=== PATIENT | male | born 1965 | race Caucasian/White ===

== ENCOUNTER 2016-12-01 21:58 | Inpatient (IN) | payer OTHER, MEDICAID ==
[~2016-12-01] VITALS: Ht 172.7 cm; Wt 80.9 kg
[2016-12-01] MEDS ORDERED: AMBI10TA PO (22:15)
[2016-12-01] MEDS ORDERED: EFFE150C PO (22:15)
[2016-12-01] MEDS ORDERED: ADDE30CA3 PO (22:15)
[2016-12-01] MEDS ORDERED: PREV15CA18 PO (22:15)
[2016-12-01] MEDS ORDERED: LIPI20TA PO (22:15)
[2016-12-01] MEDS ORDERED: KLON2TAB PO (22:15)
[2016-12-01 23:09] LABS: VENOUS BASE EXCESS -3.2 (-2.0-2.0); VENOUS O2 SATURATION 61.6 % (60.0-80.0); VENOUS PARTIAL PRESSURE CO2 49.7 mmHg (38.0-50.0); VENOUS PARTIAL PRESSURE O2 34.2 mmHg (30.0-50.0); VENOUS STANDARD HCO3 20.9 MEQ/L; VENOUS TOTAL CO2 25.3 MEQ/L (24.0-28.0)
[2016-12-01 23:22] LABS: BASO % 0.3 % (0.0-1.0); EOS # 0.2 K/mm3 (0.0-0.50); EOS % 2.3 % (0.0-3.0); LARGE UNSTAINED CELL # 0.2 K/mm3 (0.0-0.4); LYMPH # 3.2 K/mm3 (1.5-4.5); MEAN CORPUSCULAR HEMOGLOBIN 30.3 pg (27.0-33.0); MEAN CORPUSCULAR HGB CONC 34.7 g/dl (32.0-36.5); MEAN CORPUSCULAR VOLUME 87.3 fl (80.0-96.0); MONO # 0.4 K/mm3 (0.0-0.8); MONO % 4.7 % (0.0-5.0); NEUTROPHILS # 3.9 K/mm3 (1.8-7.7); NEUTROPHILS % 49.7 % (36.0-66.0); PLATELET COUNT, AUTOMATED 168 k/mm3 (150-450); RED CELL DISTRIBUTION WIDTH 12.2 % (11.5-14.5); WHITE BLOOD COUNT 7.9 K/mm3 (4.0-10.0)
[2016-12-01] MEDS ORDERED: DEXTROSE 50% 50 ML SYRINGE IV STA (23:48)
[2016-12-02] MEDS ORDERED: LR 1,000 ML IV ONE
[2016-12-02 00:14] LABS: METHADONE URINE NEGATIVE (NEGATIVE)
[2016-12-02 00:23] LABS: ALBUMIN 3.9 GM/DL (3.2-5.2); ALBUMIN/GLOBULIN RATIO 1.18 (1.00-1.93); ALKALINE PHOSPHATASE 101 U/L (45-117); ALT/SGPT 42 U/L (12-78); ANION GAP 11 MEQ/L (8-16); AST/SGOT 21 U/L (15-37); BILIRUBIN,DIRECT 0.1 MG/DL (0.0-0.2); BILIRUBIN,TOTAL 0.3 MG/DL (0.2-1.0); BLOOD UREA NITROGEN 8 MG/DL (7-18); CALCIUM LEVEL 8.8 MG/DL (8.5-10.1); CARBON DIOXIDE LEVEL 25 MEQ/L (21-32); CHLORIDE LEVEL 102 MEQ/L (98-107); CREATININE FOR GFR 1.05 MG/DL (0.70-1.30); GLOMERULAR FILTRATION RATE > 60.0 (>56); GLUCOSE, FASTING 65 MG/DL (70-105); SODIUM LEVEL 138 MEQ/L (136-145); TOTAL PROTEIN 7.2 GM/DL (6.4-8.2)
[2016-12-02] MEDS ORDERED: D5W/0.45% SODIUM CHLORIDE 1,000 ML IV SCH (03:30)
[2016-12-02] MEDS ORDERED: MOM 30ML SUSPENSION UDC PO PRN (05:30)
[2016-12-02] MEDS ORDERED: ACETAMINOPHEN TAB 650MG DOSE (2X325MG) PO PRN (05:30)
[2016-12-02] MEDS ORDERED: MAALOX 30 ML SUSP *UDC PO PRN (05:30)
[2016-12-02] MEDS ORDERED: traZODone 50 MG TAB PO PRN (05:30)
[2016-12-02] MEDS ORDERED: EFFE75CA75 PO (05:58)
[2016-12-02] MEDS ORDERED: ATOR40TA75 PO (05:58)
[2016-12-02] MEDS ORDERED: ABIL1TAB11 PO (05:58)
[2016-12-02] MEDS ORDERED: VENL75CA2 PO (05:58)
[2016-12-02] MEDS ORDERED: LANS30CA PO (05:58)
--- NOTE | 2016-12-02 05:58 | ECGEPIP ---
Stationary ECG Study [facility] - ED Test Date: 2016-12-01 Pat Name: ZULY RUBY Department: Room: - Gender: M [employer] Consultant: byron : 1965 Requested By: SUNDEEP ESQUIVEL Order Number: [id number] Reading MD: Duaen Thompson Measurements Intervals [place] Rate: 72 P: -9 MN: 158 QRS: 39 QRSD: 87 T: 47 QT: 376 QTc: 413 Interpretive Statements SINUS RHYTHM POSSIBLE PRIOR INFERIOR INFARCT NO PRIORS Electronically Signed On 12-02-2016 5:58:41 EDT by Duane Thompson
[2016-12-02 08:20] VITALS: BP 119/75
[2016-12-02] MEDS ORDERED: ATORVASTATIN 20 MG TAB PO SCH (09:00)
[2016-12-02] MEDS ORDERED: ADDERALL 5 MG TAB PO SCH (09:00)
[2016-12-02] MEDS ORDERED: VENLAFAXINE **XR** 75MG CAPSULE PO SCH (09:00)
[2016-12-02] MEDS ORDERED: LANSOPRAZOLE SUSPENSION 30 MG/10 ML ORAL SYRINGE (FIRST-LANSOPRAZOLE) PO SCH (09:00)
--- NOTE | 2016-12-02 10:08 | HPEPDOC ---
Medical History and Physical Date of Admission Dec 02, 2016 at 05:28 History and Physical PCP: Dr Layton ATTENDING: Dr. Jonathan Chester HPI: 51yoM admitted to [facility] for depressive disorder, being medically examined today. No acute medical complaints today. Denies any fevers, chills, weakness, fatigue, CORTEZ, CP, SOB, cough, palpitations, abdominal pain, N/V/D or changes in bowel or bladder habits. PMHx: ADHD Anxiety Depression History of SI Self-mutilation Hyperlipidemia GERD Insomnia BPH H/O pos PPD, Pt states Quantferon gold neg. Pt states screened for HIV/Hepatitis 12/11 neg. 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 ROS: As noted in HPI, otherwise 11pt ROS of systems reviewed and unremarkable. PE: GEN: 51yoM, appears stated age. Well-nourished, well developed. No acute distress. Alert and oriented x 3. Pleasant, interactive. HEENT: Normocephalic, atraumatic. Pupils are equal, round, and reactive to light. Extraocular movements are intact. No nystagmus appreciated. Sclera are nonicteric. Conjunctiva without injection. Nose midline. Nasal turbinates without bogginess. EACs both patent BL. TMs both visualized and perez with good cone of light, no bulging or erythema. No facial asymmetry. Moist mucous membranes. Dentition fair. Pharynx pink and moist, no cobblestoning. Neck supple , trachea midline. No lymphadenopathy or thyromegaly appreciated. CHEST: Regular rate and rhythm, +S1, +S2 LUNGS: Clear to auscultation bilaterally. No wheezes, rales, or rhonchi. Breathing appears symmetric and easy. Patient is speaking in full sentences. No accessory muscle use. ABD: Round, soft, non-tender, non-distended. +Bowel sounds throughout. No rebound or guarding. No costovertebral angle tenderness. EXT: Pulses 2+ bilaterally dorsalis pedis and radial. No lower extremity edema appreciated. SKIN: [place], dry, warm. Capillary refill <2sec. No rashes. NEURO: Alert and oriented x 3. Cranial nerves III-XII are intact. No focal deficits appreciated. EK12/01/16 SINUS RHYTHM POSSIBLE PRIOR INFERIOR INFARCT NO PRIORS A&P: 51yoM admitted to [facility] for depressive disorder, 1. Psych. Plan per Psychiatry. EKG on file. 2. Borderline EKG. No cardiac signs or symptoms appreciated on exam, follow with PCP. 3. Follow up with PCP on discharge. 4. GERD. Continue Protonix 40 mg daily. 5. Hyperlipidemia. Continue atorvastatin 40 mg daily. 6. Staff member Raquel GARZA present throughout exam. Vital Signs Vital Signs Date Time Temp Pulse Resp B/P (MAP) Pulse Ox O2 Delivery O2 Flow Rate FiO2 12/02/16 08:20 97.5 77 16 119/75 (90) 98 Room Air Laboratory Data Labs 24H Laboratory Tests 2 12/01/16 22:56: White Blood Count 7.9, Red Blood Count 4.92, Hemoglobin 14.9, Hematocrit 42.9, Mean Corpuscular Volume 87.3, Mean Corpuscular Hemoglobin 30.3, Mean Corpuscular Hemoglobin Concent 34.7, Red Cell Distribution Width 12.2, Platelet Count 168, Neutrophils (%) (Auto) 49.7, Lymphocytes (%) (Auto) 40.0, Monocytes ( %) (Auto) 4.7, Eosinophils (%) (Auto) 2.3, Basophils (%) (Auto) 0.3, Neutrophils # (Auto) 3.9, Lymphocytes # (Auto) 3.2, Monocytes # (Auto) 0.4, Eosinophils # (Auto) 0.2, Basophils # (Auto) 0.0, Large Unclassified Cells % 3.0 , Large Unclassified Cells # 0.2, Blood Gas Bicarbonate Standard 20.9, Venous Blood pH 7.297L, Venous Blood Partial Pressure CO2 49.7, Venous Blood Partial Pressure O2 34.2, Venous Blood Total Carbon Dioxide 25.3, Venous Blood HCO3 23.7 , Venous Blood Oxygen Saturation 61.6, Venous Blood Base Excess -3.2L, Anion Gap 11, Glomerular Filtration Rate > 60.0, Calcium Level 8.8, Aspartate Amino Transf (AST/SGOT) 21, Alanine Aminotransferase (ALT/SGPT) 42, Alkaline Phosphatase 101, Total Bilirubin 0.3, Direct Bilirubin 0.1, Total Creatine Kinase 126, Total Protein 7.2, Albumin 3.9, Albumin/Globulin Ratio 1.18, Thyroid Stimulating Hormone (TSH) 1.470, Salicylates Level < 1.7L, Urine Amphetamines Screen POSITIVEH, Urine Benzodiazepines Screen NEGATIVE, Urine Opiates Screen NEGATIVE, Urine Methadone Screen NEGATIVE, Acetaminophen Level < 2.0L, Urine Barbiturates Screen NEGATIVE, Urine Phencyclidine Screen NEGATIVE, Urine Cocaine Metabolite Screen NEGATIVE, Urine Cannabinoids Screen NEGATIVE, Ethyl Alcohol Level 0.050H 12/01/16 23:11: Bedside Glucose (Misc Panel) 68L 12/02/16 02:47: Bedside Glucose (Misc Panel) 73 12/02/16 04:21: Bedside Glucose (Misc Panel) 97 CBC/BMP Laboratory Tests 12/01/16 22:56 Red Blood Count 4.92, Mean Corpuscular Volume 87.3, Mean Corpuscular Hemoglobin 30.3, Mean Corpuscular Hemoglobin Concent 34.7, Red Cell Distribution Width 12.2 , Neutrophils (%) (Auto) 49.7, Lymphocytes (%) (Auto) 40.0, Monocytes (%) (Auto ) 4.7, Eosinophils (%) (Auto) 2.3, Basophils (%) (Auto) 0.3, Neutrophils # (Auto ) 3.9, Lymphocytes # (Auto) 3.2, Monocytes # (Auto) 0.4, Eosinophils # (Auto) 0.2, Basophils # (Auto) 0.0 Home Medications Scheduled Amphetamine/Dextroamphetamine (Adderall Xr 30 mg) 1 Cap Cap, 1 CAP PO DAILY Aripiprazole (Abilify) 5 Mg Tab, 5 MG PO QHS Atorvastatin Calcium (Atorvastatin Calcium) 40 Mg Tab, 40 MG PO DAILY Lansoprazole (Lansoprazole) 30 Mg Cap, 30 MG PO DAILY Venlafaxine HCl (Venlafaxine HCl ER) 75 Mg Cap, 75 MG PO QHS Venlafaxine Hydrochloride (Effexor Xr) 75 Mg Cap, 225 MG PO DAILY Scheduled PRN Clonazepam (Klonopin) 2 Mg Tab, 2 MG PO BID PRN for ANXIETY Zolpidem Tartrate (Ambien) 10 Mg Tab, 10 MG PO QHS PRN for SLEEP Allergies Coded Allergies: No Known Allergies (Unverified , 12/01/16) Sirena Villa Dec 02, 2016 10:08
[2016-12-02] MEDS: clonazePAM 1 MG TAB PO SCH ×2 (10:15→21:36)
[2016-12-02] MEDS: ATORVASTATIN 20 MG TAB PO SCH (10:56)
[2016-12-02] MEDS: VENLAFAXINE **XR** 75MG CAPSULE PO SCH ×2 (10:56→21:36)
[2016-12-02] MEDS: ADDERALL 5 MG TAB PO SCH (10:57)
[2016-12-02] MEDS: PANTOPRAZOLE 40MG TAB (PROTONIX) PO SCH (13:22)
[2016-12-02 18:00] VITALS: BP 104/69
--- NOTE | 2016-12-02 18:03 | MHHPEPDOC ---
[facility] History & Physical History and Physical DATE OF ADMISSION: Dec 02, 2016 at 05:28 LEGAL STATUS AT ADMISSION: 9.39 CHIEF COMPLAINT: "I was angry at my , I wanted him to feel hurt and scared like I did, do I took a bunch of medicine, but it wasn't to kill myself. " HISTORY OF THE PRESENT ILLNESS: Patient is a 51-year-old male, who has past diagnosis of depression and anxiety who presented for evaluation after reportedly ingesting 20 2mg Klonopin and drinking 50oz of beer. Patient states that approximately 1 week ago he discovered that his was HIV-positive, which he was not when the two were . The patient took this to mean that his had cheated on him. Previously the patient had been to a woman who had also cheated on him, this resulted in the triggering of painful memories from his past. The patient reports having struggled with these memories all week and last night was "exhausted" so he went home and took an Ambien and a Klonopin to sleep, when he was unable to fall asleep he took another of each. 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 Patient informed his of this who had the patient brought to the ED for evaluation. Patient states he has had a difficult time trusting anyone since his cheated on him. This betrayal compounded the fact that he had been trying to hide his homosexuality for years, finally outing himself at age 47. He met his current online while his was in the [facility], they eventually met and were engaged, then the moved with him to [place] after they . The patient reports that he had been in treatment for depression ever since finding out that his cheated on him. He had previously been on venlafaxine and aripiprazole, but on admission was only on venlafaxine. He did not explain why he had stopped taking the aripiprazole. At the beginning of the interview when the interviewer introduced the medical team the patient acknowledged the team by stating, "I'm Dr. Hay as well, PhD , but still a doctor." He described a history of having distractible thoughts while in school for his PhD when he was in his 30s, and stated that he had discussed this with an MD who prescribed him Ritalin, which the patient stated was very effective for him and he had been using for years. 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 PSYCHIATRIC REVIEW OF SYSTEMS: Affective: denies depressed mood, reports anger related to betrayal by his ; denies lack of sleep, decreased energy, change in appetite, decreased concentration, or suicidal ideation; does report some feeling of worthlessness due to his 's infidelity Anxiety: denied feeling anxious or having racing thoughts Trauma: denied past history of abuse, denied nightmares/flashbacks related to prior experiences with infidelity Psychosis: denied AVH, denied paranoia, denied delusional or grandiose thoughts Personally: reported he had cut himself during his first bout of depression with his ; felt some shame related to his sexuality which was lingering from having hid it for years; reported detachment from his emotions during periods of stress, denied derealization or micropsychotic features PAST PSYCHIATRIC HISTORY: Prior Psychiatric Disorder: anxiety/depression, no inpatient stays Outpatient Treatment: yes, medications only Suicidal/Self injurious: self-injurious in past; "I could never commit suicide, I don't have it in me" Psychotropic Medication History: venlafaxine, Abilify ALLERGIES: Please see below. FAMILY PSYCHIATRIC HISTORY: believes both of his brothers take antidepressants SOCIAL HISTORY: Early Relations/development: had a good childhood, [place], no complaints about life Sibling order: middle Paternal relationships: good relationships with his parents; denied any conflicts Education: PhD Occupational: works at [employer]: denies Martial: second marriage, first to woman and had 2 children, second to man after coming out as perla Economic: no concerns Supports: Abuse/trauma: denies SUBSTANCE ABUSE HISTORY: "rarely drinks", less than once a month; does not smoke ; denies use of illicit drugs but does report abusing his Klonopin prior to admission by taking 20 2mg tabs; UTox was negative for benzodiazepines which patient states "must be an error in testing, I definitely took them" PAST MEDICAL/SURGICAL HISTORY: none Vital Sign - Last 24 Hours 12/01/16 12/01/16 12/01/16 12/01/16 22:20 22:28 22:30 22:43 Temp 96.8 Pulse 73 73 89 Resp 16 B/P (MAP) 97/65 (76) 99/56 (70) Pulse Ox 98 98 O2 Delivery Room Air 12/01/16 12/01/16 12/01/16 12/01/16 22:45 22:58 23:10 23:13 Pulse 73 72 B/P (MAP) 101/66 (78) 115/76 (89) Pulse Ox 98 98 12/01/16 12/01/16 12/01/16 12/01/16 23:15 23:28 23:30 23:43 Pulse 69 71 B/P (MAP) 109/77 (88) 112/78 (89) Pulse Ox 98 98 12/01/16 12/01/16 12/02/16 12/02/16 23:45 23:58 00:00 00:15 Pulse 74 66 B/P (MAP) 112/82 (92) 114/84 (94) 116/79 (91) 12/02/16 12/02/16 12/02/16 12/02/16 00:30 00:45 01:00 01:30 Pulse 65 67 68 67 B/P (MAP) 108/68 (81) 123/77 (92) 115/77 (90) Pulse Ox 97 98 12/02/16 12/02/16 12/02/16 12/02/16 01:48 02:03 02:18 02:33 Pulse 61 59 60 B/P (MAP) 107/72 (84) Pulse Ox 96 98 98 12/02/16 12/02/16 12/02/16 12/02/16 02:48 03:03 03:18 03:33 Pulse 68 69 65 67 Pulse Ox 96 99 96 12/02/16 12/02/16 12/02/16 12/02/16 04:26 07:29 07:29 08:20 Temp 98.0 97.9 97.5 Pulse 78 77 77 Resp 16 18 16 B/P (MAP) 103/64 (77) 105/73 (84) 119/75 (90) Pulse Ox 96 98 O2 Delivery Room Air Room Air MENTAL STATUS EXAMINATION: General appearance: Patient is a 51-year old male, who is appears younger than stated age, dressed in hospital gown with fair-good hygiene/grooming; calm and cooperative with interview; intense, intermittent eye contact Speech: fluent; normal rate; flat tone, soft volume Thought processes: logical, linear, coherent Thought content: denies SI/HI; reports that he wanted his to hurt the way he did Abstract reasoning and computation: not tested Description of associations: intact Description of abnormal or psychotic thoughts: denied AVH, appears internally preoccupied before each response; no evidence of paranoid thoughts; persistent delusions that he took a very large quantity of benzodiazepines despite lack of any medical evidence Judgment: poor Insight: poor Orientation: x3 Recent and remote memory: intact Attention span and concentration: intact Mood: "angry" Affect: flat; incongruent with stated mood or thought content DIAGNOSES: 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 The patient denies that his reported ingestion of 40mg of Klonopin was a suicide attempt, but does admit that it was meant to scare his spouse. He remains firmly convinced that he took this medication despite lack of any medical evidence to corroborate the ingestion. Patient denies any psychotic features except for some depersonalization of his emotions; however, his stare is very intense and appears to have a level of preoccupation as though the patient is carefully considering all possible responses prior to speaking. Patient is also noted to be completely expressionless when discussing very emotional events in his recent life, including the of his mother one month ago. Patient's timeline of events do not match up to the evidence presented, it is unclear if the patient is lying or delusional at this time. He likely would not be safe as his risk of suicide is quite high considering his recent traumatic events, depersonalization, and reported past history of self-harm. Patient does express interest in outpatient therapy, primarily focused on couples counseling at this time. At this point he would benefit from an inpatient stay for stabilization, medication management, and skill-building. PROBLEM LIST: 1. ineffective coping 2. risk for suicide 3. depression INITIAL TREATMENT PLAN: 1. Patient was admitted on a 9 2. Complete history was obtained. 3. With patients permission, family will be contacted and database will be expanded. 4. Patients medication regimen will be reviewed and changed accordingly. 5. Patient will be provided with protected environment. 6. Patient will be treated with individual, group, and milieu therapies. 7. Patient will receive supportive psych-education. 8. Discharge planning will commence immediately. 9. Outpatient follow-up treatment will be strongly recommended. 10. The initial treatment plan will focus initially on: * Depression. * Risk for suicide. * Substance abuse. ESTIMATED LENGTH OF STAY: 7-10 DAYS. TIME SPENT COUNSELING AND COORDINATING INITIAL CARE: 60 minutes. Laboratory Data 24H Labs Laboratory Tests 2 12/01/16 22:56: White Blood Count 7.9, Red Blood Count 4.92, Hemoglobin 14.9, Hematocrit 42.9, Mean Corpuscular Volume 87.3, Mean Corpuscular Hemoglobin 30.3, Mean Corpuscular Hemoglobin Concent 34.7, Red Cell Distribution Width 12.2, Platelet Count 168, Neutrophils (%) (Auto) 49.7, Lymphocytes (%) (Auto) 40.0, Monocytes ( %) (Auto) 4.7, Eosinophils (%) (Auto) 2.3, Basophils (%) (Auto) 0.3, Neutrophils # (Auto) 3.9, Lymphocytes # (Auto) 3.2, Monocytes # (Auto) 0.4, Eosinophils # (Auto) 0.2, Basophils # (Auto) 0.0, Large Unclassified Cells % 3.0 , Large Unclassified Cells # 0.2, Blood Gas Bicarbonate Standard 20.9, Venous Blood pH 7.297L, Venous Blood Partial Pressure CO2 49.7, Venous Blood Partial Pressure O2 34.2, Venous Blood Total Carbon Dioxide 25.3, Venous Blood HCO3 23.7 , Venous Blood Oxygen Saturation 61.6, Venous Blood Base Excess -3.2L, Anion Gap 11, Glomerular Filtration Rate > 60.0, Calcium Level 8.8, Aspartate Amino Transf (AST/SGOT) 21, Alanine Aminotransferase (ALT/SGPT) 42, Alkaline Phosphatase 101, Total Bilirubin 0.3, Direct Bilirubin 0.1, Total Creatine Kinase 126, Total Protein 7.2, Albumin 3.9, Albumin/Globulin Ratio 1.18, Thyroid Stimulating Hormone (TSH) 1.470, Salicylates Level < 1.7L, Urine Amphetamines Screen POSITIVEH, Urine Benzodiazepines Screen NEGATIVE, Urine Opiates Screen NEGATIVE, Urine Methadone Screen NEGATIVE, Acetaminophen Level < 2.0L, Urine Barbiturates Screen NEGATIVE, Urine Phencyclidine Screen NEGATIVE, Urine Cocaine Metabolite Screen NEGATIVE, Urine Cannabinoids Screen NEGATIVE, Ethyl Alcohol Level 0.050H 12/01/16 23:11: Bedside Glucose (Misc Panel) 68L 12/02/16 02:47: Bedside Glucose (Misc Panel) 73 12/02/16 04:21: Bedside Glucose (Misc Panel) 97 CBC/BMP Laboratory Tests 12/01/16 22:56 Red Blood Count 4.92, Mean Corpuscular Volume 87.3, Mean Corpuscular Hemoglobin 30.3, Mean Corpuscular Hemoglobin Concent 34.7, Red Cell Distribution Width 12.2 , Neutrophils (%) (Auto) 49.7, Lymphocytes (%) (Auto) 40.0, Monocytes (%) (Auto ) 4.7, Eosinophils (%) (Auto) 2.3, Basophils (%) (Auto) 0.3, Neutrophils # (Auto ) 3.9, Lymphocytes # (Auto) 3.2, Monocytes # (Auto) 0.4, Eosinophils # (Auto) 0.2, Basophils # (Auto) 0.0 FSBS Laboratory Tests Test 12/01/16 23:11 12/02/16 02:47 12/02/16 04:21 Range/Units Bedside Glucose (Misc Panel) 68 73 97 70-105 MG/DL Medications Scheduled Amphetamine/Dextroamphetamine (Adderall Xr 30 mg) 1 Cap Cap, 1 CAP PO DAILY, ( Reported) Aripiprazole (Abilify) 5 Mg Tab, 5 MG PO QHS, (Reported) Atorvastatin Calcium (Atorvastatin Calcium) 40 Mg Tab, 40 MG PO DAILY, (Reported ) Lansoprazole (Lansoprazole) 30 Mg Cap, 30 MG PO DAILY, (Reported) Venlafaxine HCl (Venlafaxine HCl ER) 75 Mg Cap, 75 MG PO QHS, (Reported) Venlafaxine Hydrochloride (Effexor Xr) 75 Mg Cap, 225 MG PO DAILY, (Reported) Scheduled PRN Clonazepam (Klonopin) 2 Mg Tab, 2 MG PO BID PRN for ANXIETY, (Reported) Zolpidem Tartrate (Ambien) 10 Mg Tab, 10 MG PO QHS PRN for SLEEP, (Reported) Allergies Coded Allergies: No Known Allergies (Unverified , 12/01/16) YASMANI GARCIA MD Dec 02, 2016 18:03
[2016-12-03 06:45] VITALS: BP 90/59
[2016-12-03] MEDS: clonazePAM 1 MG TAB PO SCH ×2 (08:35→20:46)
[2016-12-03] MEDS: PANTOPRAZOLE 40MG TAB (PROTONIX) PO SCH (08:35)
[2016-12-03] MEDS: ATORVASTATIN 20 MG TAB PO SCH (08:35)
[2016-12-03] MEDS: VENLAFAXINE **XR** 75MG CAPSULE PO SCH ×2 (08:35→20:46)
[2016-12-03] MEDS: ADDERALL 5 MG TAB PO SCH (08:36)
[2016-12-03 18:12] VITALS: BP 106/57
[2016-12-03] MEDS: zolPIDEM TARTRATE 10MG TAB PO PRN (20:46)
--- NOTE | 2016-12-03 22:19 | IPN ---
DATE: 12/03/2016 SUBJECTIVE: The patient today states, "I'm doing all right." says his mood is about 3 to 4, with the closer to 10 as the most depressed. He says he slept well and has no complaints. MENTAL STATUS EXAMINATION: This patient is alert and oriented times three. Concentration is fair. He is verbally spontaneous. There is no formal thought disorder noted. He says his mood is "all right." affect constricted but appropriate to his mood. Not psychotic, suicidal, or homicidal. Concentration is fair. Memory intact. Insight and judgment fair. DIAGNOSES: 1. Unspecified depressive disorder. 2. Unspecified psychotic disorder. 3. Unspecified personality disorder with cluster B and C traits. TREATMENT PLAN: At this point, we will continue to further monitor and evaluate this patient for continued elevation and stabilization of his mood, and continued resolution of any suicidal or homicidal ideations.
[2016-12-04 06:44] VITALS: BP 111/70
[2016-12-04] MEDS: clonazePAM 1 MG TAB PO SCH ×2 (08:07→20:02)
[2016-12-04] MEDS: VENLAFAXINE **XR** 75MG CAPSULE PO SCH ×2 (08:07→20:02)
[2016-12-04] MEDS: PANTOPRAZOLE 40MG TAB (PROTONIX) PO SCH (08:07)
[2016-12-04] MEDS: ADDERALL 5 MG TAB PO SCH (08:07)
[2016-12-04] MEDS: ATORVASTATIN 20 MG TAB PO SCH (08:07)
[2016-12-04 18:12] VITALS: BP 113/75
--- NOTE | 2016-12-04 19:08 | IPN ---
DATE: 12/04/2016 SUBJECTIVE: The patient today states, "I'm doing better." He says he is not suicidal or homicidal. He says he slept well, has no complaints. MENTAL STATUS EXAMINATION: He is alert and oriented times three. Eye contact is fair. Psychomotor activity is normal. No formal thought disorder. He says his mood is better. Affect full range and appropriate. He is not psychotic, suicidal, or homicidal. Concentration fair. Memory intact. Insight and judgment are fair. DIAGNOSES: 1. Unspecified depressive disorder. 2. Unspecified psychotic disorder. 3. Unspecified personality disorder with cluster B and C traits. TREATMENT PLAN: We will continue to monitor the patient for continued stabilization of his mood and continued resolution of any suicidal ideation.
[2016-12-04] MEDS: zolPIDEM TARTRATE 10MG TAB PO PRN (20:03)
[2016-12-05 07:04] VITALS: BP 104/66
[2016-12-05] MEDS: clonazePAM 1 MG TAB PO SCH ×2 (08:42→20:35)
[2016-12-05] MEDS: PANTOPRAZOLE 40MG TAB (PROTONIX) PO SCH (08:42)
[2016-12-05] MEDS: ATORVASTATIN 20 MG TAB PO SCH (08:42)
[2016-12-05] MEDS: VENLAFAXINE **XR** 75MG CAPSULE PO SCH ×2 (08:42→20:35)
[2016-12-05] MEDS: ADDERALL 5 MG TAB PO SCH (08:42)
[2016-12-05] MEDS ORDERED: **PENDING PPD ENTRY XX SCH (09:00)
[2016-12-05] MEDS ORDERED: TUBERCULIN PPD 5 UNITS/0.1 ML ID ONE ×3 (15:30→18:00)
[2016-12-05 18:00] VITALS: BP 90/64
--- NOTE | 2016-12-05 18:31 | MHIPNPDOC ---
[facility] Progress Note Progress Note DATE OF SERVICE: 12/05/16 HISTORY: Patient notes that he is doing well, states he was surprised by how much benefit he found in attending groups over the weekend. He particularly enjoyed the expressive therapy group, relating that someone had reframed a way to view his world which he found very comforting. Patient denied SI/HI and stated that he wanted to go on with his life and work things out with his . Said they had talked extensively over the weekend and he understood better the situation which his had endured. VITAL SIGNS: See below. NEW TEST RESULTS: no new labs; HIV, RPR, and Hepatitis serologies pending CURRENT MEDICATIONS: See below. MENTAL STATUS EXAMINATION: Patient is a 51-year old male, who is dressed in personal clothes appropriate to the season; he is calm and cooperative, has good hygiene, and provides appropriate eye contact Speech: Is fluent; normal rate and volume; flat tone Thought processes including: logical, linear, coherent Thought content: denies SI/HI; focused on future therapy with his Description of associations: intact Description of abnormal or psychotic thoughts: denies AVH, does not appear internally preoccupied; no paranoia or delusions elicited Judgment: fair Insight: fair Orientation: x3 Recent and remote memory: intact Attention span and concentration: intact Mood: "well" Affect: flat; limited range; incongruent to stated mood or thought content DIAGNOSES: Acute Stress Reaction MDD, moderate, without psychotic features Unspecified Personality Disorder ASSESSMENT: Patient is improving and has been engaging in groups. He has been taking all medications as prescribed. Patient appears to still be in somewhat of a state of shock, his emotions still are dissociated from events as he describes them. However, patient appears less hostile than he did during the initial interview. Corroboration of the patient's story has been obtained from his who noted that the patient had swallowed a handful of unknown pills in front of him after having texted him that he was going to kill himself. He notes that the patient has been under a lot of stress both emotionally and financially recently. Patient likely had an acute stress reaction which his previously acquired coping skills were unable to handle. MANAGEMENT PLAN: continue current medication; obtain STD serology; encourage patient to attend groups and continue to focus on coping skills TIME SPENT: 30 minutes. Vital Signs Vital Signs Date Time Temp Pulse Resp B/P (MAP) Pulse Ox O2 Delivery O2 Flow Rate FiO2 12/05/16 18:00 98.0 75 16 90/64 (73) 12/05/16 07:04 Room Air 12/02/16 08:20 98 Laboratory Data 24H Labs Laboratory Tests 2 12/05/16 15:27: Current Medications Current Medications Acetaminophen (Tylenol Tab) 650 mg Q6HP PRN PO HEADACHE or DISCOMFORT; Start at 05:30; Stop 01/01/17 at 05:29 Al Hydrox/Mg Hydrox/Simethicone (Mylanta) 30 ml Q4HP PRN PO HEARTBURN/ INDIGESTION; Start 12/02/16 at 05:30; Stop 01/01/17 at 05:29 Amphetamine/ Dextroamphetamine (Adderall) 15 mg QAM PO Last administered on 08:42; Start 12/02/16 at 09:00; Stop 12/09/16 at 08:59 Amphetamine/ Dextroamphetamine (Adderall) 30 mg QAM PO ; Start 12/02/16 at 09:00 ; Stop 12/02/16 at 10:34; Status DC Aripiprazole (AbiLIFY) 5 mg QHS PO Last administered on 12/04/16 20:03; Start 12/02/16 at 21:00; Stop 01/01/17 at 20:59 Atorvastatin Calcium (Lipitor) 20 mg DAILY PO ; Start 12/02/16 at 09:00; Stop 12/02/16 at 10:10; Status DC Atorvastatin Calcium (Lipitor) 40 mg DAILY PO Last administered on 12/05/16 08 :42; Start 12/02/16 at 09:00; Stop 01/01/17 at 08:59 Clonazepam (KlonoPIN) 2 mg BID PO Last administered on 12/05/16 08:42; Start 12/02/16 at 09:00; Stop 12/09/16 at 08:59 Dextrose (Dextrose 50%) 25 ml STAT STAT IV Last administered on 12/01/16 23:48 ; Start 12/01/16 at 23:48; Stop 12/01/16 at 23:49; Status DC Dextrose/Sodium Chloride 1,000 ml @ 75 mls/hr [id number] IV Last administered on 12/02/16 03:29; Start 12/02/16 at 03:30; Stop 12/02/16 at 08:14; Status DC Home Med (Med Rec Complete!) ASDIRECTED XX ; Start 12/02/16 at 06:00; Stop at 07:08; Status DC Lansoprazole (First-Lansoprazole Oral Suspension) 15 mg DAILY PO ; Start at 09:00; Stop 01/01/17 at 08:59; Status Cancel Magnesium Hydroxide (Milk Of Magnesia) 30 ml DAILYPRN PRN PO CONSTIPATION; Start 12/02/16 at 05:30; Stop 01/01/17 at 05:29 Non-Formulary Medication ( See Comment Field Below ) SEE COMMENTS SECTION 1T @10 XX ; Start 12/07/16 at 10:00; Stop 12/08/16 at 09:59; Status UNV Non-Formulary Medication ( See Comment Field Below ) SEE LABEL COMMENTS DAILY XX ; Start 12/05/16 at 09:00; Stop 12/05/16 at 15:53; Status DC Pantoprazole Sodium (Protonix) 40 mg DAILY PO Last administered on 12/05/16 08 :42; Start 12/02/16 at 09:00; Stop 01/01/17 at 08:59 Trazodone HCl (Desyrel) 50 mg QHSP PRN PO INSOMNIA; Start 12/02/16 at 05:30; Stop 01/01/17 at 05:29; Status Cancel Venlafaxine HCl (Effexor Xr) 75 mg QHS PO Last administered on 12/04/16 20 :02; Start 12/02/16 at 21:00; Stop 01/01/17 at 20:59 Venlafaxine HCl (Effexor Xr) 150 mg DAILY PO ; Start 12/02/16 at 09:00; Stop 01/01/17 at 08:59; Status Cancel Venlafaxine HCl (Effexor Xr) 225 mg QAM PO Last administered on 12/05/16 08:42; Start 12/02/16 at 09:00; Stop 01/01/17 at 08:59 Zolpidem Tartrate (Ambien) 10 mg QHS PRN PO INSOMNIA Last administered on t 20:03; Start 12/02/16 at 10:45; Stop 12/09/16 at 10:44 Allergies Coded Allergies: No Known Allergies (Unverified , 12/01/16) YASAMNI GARCIA MD Dec 05, 2016 18:31
[2016-12-05] MEDS: zolPIDEM TARTRATE 10MG TAB PO PRN (20:35)
[2016-12-06 06:47] VITALS: BP 115/60
[2016-12-06] MEDS: clonazePAM 1 MG TAB PO SCH (08:02)
[2016-12-06] MEDS: ATORVASTATIN 20 MG TAB PO SCH (08:02)
[2016-12-06] MEDS: PANTOPRAZOLE 40MG TAB (PROTONIX) PO SCH (08:02)
[2016-12-06] MEDS: VENLAFAXINE **XR** 75MG CAPSULE PO SCH (08:02)
[2016-12-06] MEDS: ADDERALL 5 MG TAB PO SCH (08:02)
[2016-12-06] MEDS ORDERED: ABIL1TAB11 PO (11:01)
--- NOTE | 2016-12-06 17:35 | MHDSPDOC ---
[facility] Discharge Summary Discharge Summary DATE OF ADMISSION: Dec 02, 2016 at 05:28 DATE OF DISCHARGE: Dec 06, 2016 at 13:30 DISCHARGE DIAGNOSES: Acute Stress Reaction MDD, moderate, without psychotic features Unspecified Personality Disorder REASON FOR ADMISSION: Patient was brought to ED by EMS after his called and stated the patient had taken approximately 20 Klonopin in a presumed suicide attempt. CONSULTANTS INVOLVED: none TREATMENT AND PROGRESS ON THE UNIT : Patient was admitted to the unit and continued on his regular medications with the exception of Klonopin. A discussion was had with the patient about what medications he took as his Utox was negative for benzodiazepines on admission; he remained adamant throughout the admission that he had taken Klonopin and his had agreed that this was the case. Patient was re-started on Abilify which it was unclear if he was taking at home. He was encouraged to participate in groups and he reported much benefit from these. Patient was also provided with information regarding HIV and HIV treatment which helped him to resolve his worries regarding his ' s new diagnosis. Patient reported being interested in outpatient couple's counseling to assist with the marital strife that had occurred. His was involved to assist in protection once the patient returned home and he subsequently removed guns from the house and ensured that the patient's medicine would be kept locked up and given to him as prescribed for the time being. Patient agreed that this would be useful and also agreed to continue with individual therapy. HOSPITAL COURSE: Patient participated in all available groups and attempted to learn as much as he could to process and cope with his stress. Although initially hostile in attitude he quickly became courteous to staff and engaged readily in his treatment. Patient was able to describe detailed methods he had learned for anger/impulse control prior to his discharge and was able to provide a large list of friends who could help support him if he was having further problems. Patient was discharged to home in the care of his . DISCHARGE ASSESSMENT: 51 year old man with MDD who experienced an Acute Stress Reaction secondary to the knowledge that his had cheated on him. This triggered flashbacks to his previous marriage in which his was cheating on him for some time. The patient was able to utilize a logical mindset to cope with the stresses that were presented to him and he was noted to approach all problems in a considerate and rational manner during his stay on the unit. At this time the patient does not appear to be a danger to himself or others and his agrees that the patient is acting as he normally would. MENTAL STATUS EXAMINATION ON DISCHARGE: Patient is a 51-year old male, who is dressed in personal clothes appropriate to the season; he is calm and cooperative with the interview; he has good hyigene/grooming Speech is fluent; normal rate and volume; flat tone Thought processes including: logical, linear, coherent Thought content: denies SI/HI; denies anxiety or depressed mood; expresses determination to resolve his marital issues Abstract reasoning, and computation: intact Description of associations: intact Description of abnormal or psychotic thoughts: denies AVH, does not appear internally preoccupied; no paranoia or delusions elicited Judgment: fair Insight: fair Orientation to x3 Recent and remote memory: intact Attention span and concentration: intact Mood: "composed" Affect: neutral affect; constricted range; congruent to mood and thought content MEDICATIONS ON DISCHARGE: Abilify 5mg QHS others as below, no change from previous outpatient regimen PLAN/FOLLOWUP ARRANGEMENTS: will remain with his regular medical provider; psychiatric followup at [facility] to return to unit tomorrow for PPD evaluation The amount of time spent in the coordination of care for this patient was approximately 30 minutes. Vital Signs/I&Os Vital Signs Date Time Temp Pulse Resp B/P (MAP) Pulse Ox O2 Delivery O2 Flow Rate FiO2 12/06/16 06:47 97.2 75 16 115/60 (78) Room Air 12/02/16 08:20 98 Medications Scheduled Amphetamine/Dextroamphetamine (Adderall Xr 30 mg) 1 Cap Cap, 1 CAP PO DAILY, ( Reported) Aripiprazole (Abilify) 5 Mg Tab, 5 MG PO QHS for MOOD, #10 Atorvastatin Calcium (Atorvastatin Calcium) 40 Mg Tab, 40 MG PO DAILY, (Reported ) Lansoprazole (Lansoprazole) 30 Mg Cap, 30 MG PO DAILY, (Reported) Venlafaxine HCl (Venlafaxine HCl ER) 75 Mg Cap, 75 MG PO QHS, (Reported) Venlafaxine Hydrochloride (Effexor Xr) 75 Mg Cap, 225 MG PO DAILY, (Reported) Scheduled PRN Clonazepam (Klonopin) 2 Mg Tab, 2 MG PO BID PRN for ANXIETY, (Reported) Zolpidem Tartrate (Ambien) 10 Mg Tab, 10 MG PO QHS PRN for SLEEP, (Reported) Allergies Coded Allergies: No Known Allergies (Unverified , 12/01/16) YASMANI GARCIA MD Dec 06, 2016 17:35
[2016-12-07] MEDS ORDERED: PPD DOCUMENTATION ENTRY MISC XX SCH (10:00)
[2016-12-07] MEDS ORDERED: PPD DOCUMENTATION ENTRY MISC XX ONE (18:00)
== END 2016-12-06 13:30 | disposition home or self-care (01) | DRG 882 ==
LOC: EDBD 21:58 → M ED 21:58 → M ED INP 12-02 05:28 → M PSY 12-02 07:54
PROVIDERS: ADMIT Psychiatry & Neurology Psychiatry; ATTEND Psychiatry & Neurology Psychiatry
DX: F43.9 Reaction to severe stress, unspecified (principal); F32.1 Major depressive disorder, single episode, moderate; F60.9 Personality disorder, unspecified; Z79.899 Other long term (current) drug therapy; K21.9 Gastro-esophageal reflux disease without esophagitis; E78.5 Hyperlipidemia, unspecified; N40.0 Benign prostatic hyperplasia without lower urinary tract symptoms; G47.00 Insomnia, unspecified

== ENCOUNTER 2017-03-28 07:52 | Day surgery (SDC) | payer OTHER, MEDICAID ==
[2017-03-28] MEDS: LR 1,000 ML IV (08:00)
[2017-03-28] MEDS ORDERED: PROPOFOL 500 MG/50 ML VIAL As Ordered (09:23)
[2017-03-28] MEDS ORDERED: LIDOCAINE 2% INJ 100 MG/5 ML SDV (FOR ANES.) As Ordered (09:23)
== END 2017-03-28 10:32 | disposition home or self-care (01) ==
LOC: M OPP 07:52
DX: Z12.11 Encounter for screening for malignant neoplasm of colon (principal); D12.3 Benign neoplasm of transverse colon; D12.4 Benign neoplasm of descending colon; K62.1 Rectal polyp; K57.30 Diverticulosis of large intestine without perforation or abscess without bleeding; K21.9 Gastro-esophageal reflux disease without esophagitis; N40.0 Benign prostatic hyperplasia without lower urinary tract symptoms; F31.9 Bipolar disorder, unspecified; F41.9 Anxiety disorder, unspecified; E78.00 Pure hypercholesterolemia, unspecified; Z79.899 Other long term (current) drug therapy
CPT/HCPCS: 45388

== ENCOUNTER → 2017-05-04 | Outpatient (REF) | payer OTHER, MEDICAID ==
[2017-05-04 16:07] LABS: ANION GAP 6 MEQ/L (8-16); BLOOD UREA NITROGEN 13 MG/DL (7-18); CALCIUM LEVEL 8.7 MG/DL (8.5-10.1); CARBON DIOXIDE LEVEL 29 MEQ/L (21-32); CHLORIDE LEVEL 107 MEQ/L (98-107); CREATININE FOR GFR 1.03 MG/DL (0.70-1.30); GLOMERULAR FILTRATION RATE > 60.0 (>56); GLUCOSE, FASTING 99 MG/DL (70-100); SODIUM LEVEL 142 MEQ/L (136-145)
[2017-05-05 11:28] LABS: HIV 1&2 SCREEN CENTAUR NEGATIVE (NEGATIVE)
== END ==
LOC: M LABDRAW1 14:14
DX: Z20.6 Contact with and (suspected) exposure to human immunodeficiency virus [HIV] (principal)

== ENCOUNTER → 2017-08-01 | Outpatient (REF) | payer OTHER, MEDICAID ==
[2017-08-01 16:24] LABS: APPEARANCE, URINE CLEAR (CLEAR); BACTERIA, URINE AUTO NEGATIVE (NEGATIVE); BILIRUBIN, URINE AUTO NEGATIVE (NEGATIVE); BLOOD, URINE BLOOD NEGATIVE (NEGATIVE); COLOR, URINE YELLOW (YELLOW); GLUCOSE, URINE (UA) AUTO NEGATIVE (NEGATIVE); KETONE, URINE AUTO NEGATIVE (NEGATIVE); LEUKOCYTE ESTERASE, URINE AUTO NEGATIVE (NEGATIVE); MUCUS, URINE SMALL (NEGATIVE); NITRITE, URINE AUTO NEGATIVE (NEGATIVE); PROTEIN, URINE AUTO NEGATIVE (NEGATIVE); RBC, URINE AUTO 0 /HPF (0-3); SPECIFIC GRAVITY URINE AUTO 1.025 (1.002-1.035); SQUAMOUS EPITHELIAL CELL UR AU 0 /HPF (0-6); UROBILINOGEN, URINE AUTO 0.2 mg/dL (0.0-2.0); WBC, URINE AUTO 1 /HPF (0-3)
[2017-08-01 16:33] LABS: ANION GAP 6 MEQ/L (8-16); BLOOD UREA NITROGEN 16 MG/DL (7-18); CALCIUM LEVEL 8.9 MG/DL (8.5-10.1); CARBON DIOXIDE LEVEL 26 MEQ/L (21-32); CHLORIDE LEVEL 107 MEQ/L (98-107); GLOMERULAR FILTRATION RATE > 60.0 (>56); GLUCOSE, FASTING 82 MG/DL (70-100); POTASSIUM SERUM 3.9 MEQ/L (3.5-5.1); SODIUM LEVEL 139 MEQ/L (136-145)
[2017-08-02 09:00] LABS: HIV 1&2 SCREEN CENTAUR NEGATIVE (NEGATIVE)
== END ==
LOC: M SFHCPLAZ 14:09
DX: Z20.6 Contact with and (suspected) exposure to human immunodeficiency virus [HIV] (principal)

== ENCOUNTER → 2017-11-07 | Outpatient (REF) | payer OTHER, MEDICAID ==
[2017-11-07 16:36] LABS: ANION GAP 8 MEQ/L (8-16); BLOOD UREA NITROGEN 10 MG/DL (7-18); CALCIUM LEVEL 9.3 MG/DL (8.5-10.1); CARBON DIOXIDE LEVEL 28 MEQ/L (21-32); CHLORIDE LEVEL 107 MEQ/L (98-107); CREATININE FOR GFR 1.19 MG/DL (0.70-1.30); GLOMERULAR FILTRATION RATE > 60.0 (>56); GLUCOSE, FASTING 112 MG/DL (70-100); POTASSIUM SERUM 4.2 MEQ/L (3.5-5.1); SODIUM LEVEL 143 MEQ/L (136-145)
[2017-11-08 08:49] LABS: HIV 1&2 SCREEN CENTAUR NEGATIVE (NEGATIVE)
== END ==
LOC: M SFHCPLAZ 13:49
DX: Z20.6 Contact with and (suspected) exposure to human immunodeficiency virus [HIV] (principal)

== ENCOUNTER → 2018-03-01 | Outpatient (REF) | payer OTHER, MEDICAID ==
[2018-03-01 16:14] LABS: ANION GAP 8 MEQ/L (8-16); APPEARANCE, URINE CLEAR (CLEAR); BACTERIA, URINE AUTO NEGATIVE (NEGATIVE); BILIRUBIN, URINE AUTO NEGATIVE (NEGATIVE); BLOOD UREA NITROGEN 13 MG/DL (7-18); BLOOD, URINE BLOOD NEGATIVE (NEGATIVE); CARBON DIOXIDE LEVEL 29 MEQ/L (21-32); CHLORIDE LEVEL 103 MEQ/L (98-107); COLOR, URINE YELLOW (YELLOW); CREATININE FOR GFR 1.25 MG/DL (0.70-1.30); GLOMERULAR FILTRATION RATE > 60.0 (>56); GLUCOSE, FASTING 91 MG/DL (70-100); GLUCOSE, URINE (UA) AUTO NEGATIVE (NEGATIVE); KETONE, URINE AUTO NEGATIVE (NEGATIVE); LEUKOCYTE ESTERASE, URINE AUTO NEGATIVE (NEGATIVE); NITRITE, URINE AUTO NEGATIVE (NEGATIVE); POTASSIUM SERUM 3.8 MEQ/L (3.5-5.1); PROTEIN, URINE AUTO NEGATIVE (NEGATIVE); RBC, URINE AUTO 2 /HPF (0-3); SODIUM LEVEL 140 MEQ/L (136-145); SPECIFIC GRAVITY URINE AUTO 1.009 (1.002-1.035); SQUAMOUS EPITHELIAL CELL UR AU 0 /HPF (0-6); UROBILINOGEN, URINE AUTO 0.2 mg/dL (0.0-2.0); WBC, URINE AUTO 0 /HPF (0-3)
[2018-03-02 11:33] LABS: HIV 1&2 SCREEN CENTAUR NEGATIVE (NEGATIVE)
== END ==
LOC: M SFHCPLAZ 13:24
DX: Z20.6 Contact with and (suspected) exposure to human immunodeficiency virus [HIV] (principal)

== ENCOUNTER → 2018-08-28 | Outpatient (REF) | payer OTHER, MEDICAID ==
[~2018-08-28] MED LIST: ABIL1TAB11 PO; ADDE30CA3 PO; AMBI10TA PO; ATOR40TA75 PO; EFFE150C2 PO; EFFE75CA2 PO; KLON2TAB PO; LANS30CA PO; LIPI20TA PO; PREV15CA18 PO; VENL75CA2 PO
[2018-08-28 13:14] LABS: APPEARANCE, URINE CLEAR (CLEAR); BACTERIA, URINE AUTO NEGATIVE (NEGATIVE); BILIRUBIN, URINE AUTO NEGATIVE (NEGATIVE); BLOOD, URINE BLOOD NEGATIVE (NEGATIVE); COLOR, URINE YELLOW (YELLOW); GLUCOSE, URINE (UA) AUTO NEGATIVE (NEGATIVE); KETONE, URINE AUTO NEGATIVE (NEGATIVE); LEUKOCYTE ESTERASE, URINE AUTO NEGATIVE (NEGATIVE); MUCUS, URINE SMALL (NEGATIVE); NITRITE, URINE AUTO NEGATIVE (NEGATIVE); PROTEIN, URINE AUTO NEGATIVE (NEGATIVE); RBC, URINE AUTO 3 /HPF (0-3); SPECIFIC GRAVITY URINE AUTO 1.023 (1.002-1.035); SQUAMOUS EPITHELIAL CELL UR AU 0 /HPF (0-6); UROBILINOGEN, URINE AUTO 0.2 mg/dL (0.0-2.0); WBC, URINE AUTO 1 /HPF (0-3)
[2018-08-28 13:45] LABS: BLOOD UREA NITROGEN 17 MG/DL (7-18); CALCIUM LEVEL 9.6 MG/DL (8.5-10.1); CARBON DIOXIDE LEVEL 29 MEQ/L (21-32); CHLORIDE LEVEL 105 MEQ/L (98-107); CREATININE FOR GFR 1.23 MG/DL (0.70-1.30); GLOMERULAR FILTRATION RATE > 60.0 (>56); GLUCOSE, FASTING 98 MG/DL (70-100); POTASSIUM SERUM 4.4 MEQ/L (3.5-5.1); SODIUM LEVEL 139 MEQ/L (136-145)
[2018-08-29 11:57] LABS: HIV 1&2 SCREEN CENTAUR NEGATIVE (NEGATIVE)
== END ==
LOC: M SFHCPLAZ 11:06
PROVIDERS: ATTEND Internal Medicine Infectious Disease
DX: Z20.6 Contact with and (suspected) exposure to human immunodeficiency virus [HIV] (principal)

== ENCOUNTER → 2018-09-03 | Outpatient (REF) | payer OTHER, MEDICAID ==
[2018-09-03 13:28] LABS: CHLAMYDIA DNA AMPLIFICATION NEGATIVE (NEGATIVE); GC DNA AMPLIFICATION NEGATIVE (NEGATIVE)
[2018-09-05 08:42] LABS: CHLAMYDIA PHARYNGEAL APTIMA Negative (Negative); GC PHARYNGEAL APTIMA Negative (Negative)
[2018-09-06 08:06] LABS: CHLAMYDIA RECTAL APTIMA Negative (Negative); GC RECTAL APTIMA Negative (Negative)
== END ==
LOC: M LAB REF 11:25
PROVIDERS: ATTEND Internal Medicine Infectious Disease
DX: Z20.2 Contact with and (suspected) exposure to infections with a predominantly sexual mode of transmission (principal)

== ENCOUNTER → 2018-09-19 | Outpatient (REF) | payer OTHER, MEDICAID ==
[2018-09-19 12:36] LABS: FREE T4 0.98 NG/DL (0.76-1.46); THYROID STIMULATING HORMONE 1.8 uIU/ML (0.358-3.740)
[2018-09-19 14:02] LABS: TOTAL 25(OH) VITAMIN D 20.6 NG/ML (30.0-100.0)
[2018-09-24 00:07] LABS: Methylmalonic Acid 339 nmol/L (0-378)
== END ==
LOC: M SFHCPLAZ 09:34
PROVIDERS: ATTEND Family Medicine
DX: F33.2 Major depressive disorder, recurrent severe without psychotic features (principal)

== ENCOUNTER 2019-01-03 22:36 | Inpatient (IN) | payer MEDICAID, OTHER ==
[~2019-01-03] VITALS: Ht 172.7 cm; Wt 87.2 kg
[2019-01-03] MEDS ORDERED: NS 1,000 ML IV ONE (22:45)
[2019-01-03 23:00] LABS: HEMOGLOBIN 15.6 g/dl (13.5-17.5); MEAN CORPUSCULAR HEMOGLOBIN 29.4 pg (27.0-33.0); MEAN CORPUSCULAR HGB CONC 33.9 g/dl (32.0-36.5); MEAN CORPUSCULAR VOLUME 86.6 fl (80.0-96.0); PLATELET COUNT, AUTOMATED 171 10^3/uL (150-450); RED BLOOD COUNT 5.31 10^6/uL (4.30-6.10)
[2019-01-03 23:03] LABS: WHITE BLOOD COUNT 12.3 10^3/uL (4.0-10.0)
[2019-01-03 23:19] LABS: ATYPICAL LYMPH 3 % (0-5); BASOPHILS 1 % (0-1); LYMPHOCYTES 52 % (16-44); MONOCYTES 5 % (0-5); NEUTROPHILS 39 % (28-66)
[2019-01-03 23:20] LABS: ANISOCYTOSIS 1+; PLATELET ESTIMATE NORMAL (NORMAL)
[2019-01-03 23:39] LABS: ACETAMINOPHEN LEVEL < 2.0 UG/ML (10.0-30.0); ALBUMIN 3.8 GM/DL (3.2-5.2); ALT/SGPT 56 U/L (12-78); BILIRUBIN,DIRECT 0.2 MG/DL (0.0-0.2); BILIRUBIN,TOTAL 0.6 MG/DL (0.2-1.0); BLOOD UREA NITROGEN 18 MG/DL (7-18); CALCIUM LEVEL 8.5 MG/DL (8.5-10.1); CARBON DIOXIDE LEVEL 21 MEQ/L (21-32); CHLORIDE LEVEL 103 MEQ/L (98-107); CPK CREATINE PHOSPHOKINASE 291 U/L (39-308); CREATININE FOR GFR 1.43 MG/DL (0.70-1.30); ETHYL ALCOHOL (ETHANOL) 0.098 % (0.000-0.010); GLOMERULAR FILTRATION RATE 55.1 (>56); GLUCOSE, FASTING 92 MG/DL (70-100); POTASSIUM SERUM 4.1 MEQ/L (3.5-5.1); SALICYLATE LEVEL < 1.7 MG/DL (5.0-30.0); SODIUM LEVEL 138 MEQ/L (136-145); TOTAL PROTEIN 7.7 GM/DL (6.4-8.2)
[2019-01-04 00:19] LABS: ABG BASE EXCESS -5.3 (-2.0-2.0); ABG HCO3 21.2 MEQ/L (22.0-26.0); ABG PARTIAL PRESSURE CO2 44.7 mmHg (35.0-45.0); ABG PARTIAL PRESSURE O2 119.1 mmHg (75.0-100.0); ABG STANDARD HCO3 20.2 MEQ/L (22.0-26.0); ABG TOTAL CO2 22.6 MEQ/L (22.0-29.0); ABG pH (ARTERIAL) 7.294 UNITS (7.350-7.450)
[2019-01-04 02:18] LABS: AMPHETAMINES LEVEL URINE POSITIVE (NEGATIVE); BARBITURATES URINE NEGATIVE (NEGATIVE); BENZODIAZEPINES URINE NEGATIVE (NEGATIVE); CANNABINOIDS URINE NEGATIVE (NEGATIVE); COCAINE METABOLITE URINE NEGATIVE (NEGATIVE); METHADONE URINE NEGATIVE (NEGATIVE); OPIATES URINE NEGATIVE (NEGATIVE); PHENCYCLIDINE URINE NEGATIVE (NEGATIVE)
[2019-01-04] MEDS ORDERED: BUPR300T34 PO (10:08)
[2019-01-04] MEDS ORDERED: TRUVTAB PO (10:08)
[2019-01-04] MEDS ORDERED: ABIL1TAB11 PO (10:08)
[2019-01-04] MEDS ORDERED: DESV100T3 PO (10:08)
[2019-01-04] MEDS ORDERED: ATOR1TAB21 PO (10:08)
[2019-01-04] MEDS ORDERED: CLON1TAB17 PO (10:08)
[2019-01-04] MEDS ORDERED: MAALOX 30 ML SUSP *UDC PO PRN (11:00)
[2019-01-04] MEDS ORDERED: ACETAMINOPHEN TAB 650MG DOSE (2X325MG) PO PRN (11:00)
[2019-01-04] MEDS ORDERED: MOM 30ML SUSPENSION UDC PO PRN (11:00)
[2019-01-04 12:02] VITALS: BP 128/86
[2019-01-04 17:27] VITALS: BP 93/58
--- NOTE | 2019-01-04 19:00 | ECGEPIP ---
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
[2019-01-04] MEDS: TRUVADA 200MG/300MG TABLET PO SCH (20:01)
[2019-01-04] MEDS: ATORVASTATIN 20 MG TAB PO SCH (20:02)
[2019-01-05 06:27] VITALS: BP 107/64
[2019-01-05 07:27] LABS: BASO # 0.1 10^3/uL (0.0-0.2); BASO % 0.9 % (0.0-1.0); EOS # 0.3 10^3/uL (0.0-0.5); EOS % 4.9 % (0.0-3.0); HEMATOCRIT 44.7 % (42.0-52.0); LYMPH # 2.3 10^3/uL (1.5-5.0); LYMPH % 42.6 % (24.0-44.0); MEAN CORPUSCULAR HEMOGLOBIN 29.2 pg (27.0-33.0); MEAN CORPUSCULAR HGB CONC 33.6 g/dl (32.0-36.5); MEAN CORPUSCULAR VOLUME 87.1 fl (80.0-96.0); MONO # 0.4 10^3/uL (0.0-0.8); MONO % 7.3 % (0.0-5.0); NEUTROPHILS # 2.4 10^3/uL (1.5-8.5); NEUTROPHILS % 44.1 % (36.0-66.0); PLATELET COUNT, AUTOMATED 126 10^3/uL (150-450); RED BLOOD COUNT 5.13 10^6/uL (4.30-6.10); WHITE BLOOD COUNT 5.5 10^3/uL (4.0-10.0)
--- NOTE | 2019-01-05 07:45 | HPE ---
DATE OF ADMISSION: 01/04/2019 Please refer to the psychiatric history and evaluation for further details on this admission. This examination and history is intended for medical issues which may need treatment, followup or consultation on this 53-year-old male. ALLERGIES: No known allergies. PRIMARY CARE PROVIDER: Dr. Nima Delgado SOCIAL HISTORY: He is . He took an overdose of clonazepam and alcohol. He states he normally does not drink, but he drank with the clonazepam. He is having problems with his relationship. He does not smoke cigarettes. He does not use recreational drugs. PAST MEDICAL HISTORY: Depression. Asthma. Hypercholesterolemia. PAST SURGICAL HISTORY: Appendectomy. Tonsillectomy and adenoidectomy as a child. Ear surgery times two as an adult. FAMILY HISTORY: Mother at age 79, liver cancer. Father is alive, medical history unknown. LABORATORY STUDIES: White count 12.3, hemoglobin 15.6, hematocrit 46 and platelets 171. Electrolytes were normal. BUN 18, creatinine 1.43. Toxicology was positive for amphetamines. ETOH was 0.098. Blood gas showed pH of 7.294, pCO2 44, pO2 119, oxygen saturation 98%. HOME MEDICATIONS: - Abilify 5 mg by mouth at bedtime - atorvastatin 20 mg by mouth at bedtime - bupropion 300 mg by mouth at bedtime - Truvada 200/300 one by mouth at bedtime - clonazepam 1 mg by mouth twice a day as needed anxiety - desvenlafaxine 100 mg by mouth at bedtime - Ambien 10 mg by mouth as needed for sleep EKG showed sinus rhythm, , rate of 86. PHYSICAL EXAMINATION: 53-year-old cooperative male in no acute distress. Height 68 inches. Weight 87.2 kg. Body mass index (BMI) 29.2. Blood pressure 128/86. Pulse 92. Respirations 16. Temperature 98. Oxygen saturation 98%. The patient is alert and oriented times three. Pupils equal and react to light. Extraocular movements intact. Cornea and sclera clear. Conjunctiva normal. No facial asymmetry. Pharynx, tongue and gums pink and moist. Tongue is midline. Neck is supple, without lymphadenopathy. No thyromegaly. No goiter. Carotids 2+, without bruit. Chest clear to auscultation, without wheeze or retraction. Heart is regular. Abdomen benign. Bowel sounds positive. Genitourinary ()/Rectal: Not done. Extremities show equal strength, full range of motion. No cyanosis, clubbing or edema. Peripheral pulses equal and palpable bilaterally. Skin is warm and dry. IMPRESSION AND PLAN: 1. Psychiatric. Plan per psychiatry. 2. Leukocytosis, probably reactive. He has no signs of infection. Will repeat CBC in the a.m. 3. History of hypercholesterolemia. Continue atorvastatin. 4. History of gastroesophageal reflux disease. Continue Protonix.
[2019-01-05 07:53] LABS: ALBUMIN 3.5 GM/DL (3.2-5.2); BILIRUBIN,TOTAL 0.6 MG/DL (0.2-1.0); CALCIUM LEVEL 8.9 MG/DL (8.5-10.1); CREATININE FOR GFR 1.4 MG/DL (0.70-1.30); GLOMERULAR FILTRATION RATE 56.4 (>56); POTASSIUM SERUM 4.6 MEQ/L (3.5-5.1); TOTAL PROTEIN 6.9 GM/DL (6.4-8.2)
[2019-01-05] MEDS: VENLAFAXINE **XR** 75MG CAPSULE PO SCH (09:44)
[2019-01-05] MEDS: PANTOPRAZOLE 40MG TAB (PROTONIX) PO SCH (09:44)
--- NOTE | 2019-01-05 11:23 | MHHPEPDOC ---
General Date Of Admission: Jan 04, 2019 Legal Status: 9.39 Chief Complaint "I took too many Klonopin." History of Present Illness HISTORY OF THE PRESENT ILLNESS: Patient is a 53 -year-old , male, has a history of depression and 1 prior admission [facility] 11/2016 s/p OD klonopin who was brought to ED by PD under 9.41 after pt text a friend in [place] and his a suicide message then took 40+ Klonopin and a lot of alcohol he stated in the ED so he could sleep b/c he had not eaten or slept in 3 days. Pt utox positive amphetamines in ED which he was mostly like abusing (common among homosexual men for engagement in sexual activities with strangers they meet on live) causing him inability to sleep and poor appetite. Pt in ED, lethargic stating he didn't need to be admitted and just could sleep. He did admit to relationship problems with his causing his to stay with a friend prior to pt's OD. Psychiatric Review of Systems Depression (2 or more weeks): depressed mood, difficulty concentrating, suicidal thoughts Duyen (4 or more days of): denies Psychosis: denies PTSD: denies Anxiety: situational anxiety, stressor related anxiety Anxiety/ 6 months or more of: easily fatigued, difficulty concentrating, irritability Past Psychiatric History Previous Psychiatric Diagnosis: anxiety/depression Previous Psychiatric Admissions: 1 previous admission [facility] 12/02/16 for depression Suicide Attempts: self-injury in past, prior OD Klonopin 12/02/16 secondary depression after finding out dx with HIV Psychiatric Follow-up: [facility] Psychiatric medications: effexor xr, klonopin, abilify Past Medical History Medical Problems Depression. Asthma. Hypercholesterolemia. Head Injury: No Seizures: No Hospitalizations: Yes Surgeries: Yes (Appendectomy. Tonsillectomy and adenoidectomy as a child. 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 Legal: denies Martial: second marriage, first to woman and had 2 children, second to man after coming out as perla Economic: no concerns Supports: Abuse/trauma: denies Living environment: lives with in [place] Mental Status Examination General Appearance: well groomed, appears stated age, hospital scubs/clothing Build: average Demeanor: other (divoide of emotion, almost robbot like) Eye Contact: intense Activity: slowed, other (blunted and robbot like) Behavior: cooperative Speech: clear Mood: depressed Mood "better" Affect: constricted, flat Thought Process: logical/linear, concrete, depressed, slow Thought Content (Delusions): none reported, denies SI, HI, AVH Thought Content (Other): none reported, appropriate Thought Content (Aggressive): none reported Perception (Hallucinations): none reported Perception (Other): none reported Cognition (Impairment of): none reported Cognition(Intelligence Est.): average Oriented: Awake, Alert, Oriented times three Insight: fair Judgment: Fair Psychosis: Denies Diagnoses Major Depressive D/O recurrent severe w/o psychosis anxiety d/o unspecified amphetamine/benzodiazepine use d/o r/o dependent personality d/o A-FIB/CHADSVASC A-FIB History Current/History of A-Fib/PAF?: No Assessment Pt seen and states he's "not doing so good" b/c his won't answer the phone after they had had a fight a few days ago prior pt's admission regarding forgetting an interview with immigration for his as he's [employer] and his getting angry with pt's son who lives with them and let to stay with one of his [facility] friends causing pt to text him something not nice so now he won't answer pt's calls. States he believes what he needs to do to improve is focus on his family as they are very supportive (willing to have pt stay with them when pt feels he needs to rather than on just his which pt states he's become dependent on. Continues to endorse depression and is very flat and monothymic when seen. States in the past he had been prescribed adderall but stopped taking due to some unknown reason but had some left over and took 1 2 days ago b/c he thought it would help him sleep. Not very reliable. Pt states his outpatient effexor xr and abilify beneficial and would like to restart. Pt informed that he overdosed on Klonopin twice showing the he has poor ability to manage drug safely so therefore will d/c and provided vistaril prn anxiety which is much safer and nonaddictive which he was ok with. Denies current SI/HI, hallucinations, delusions. Feels safe here. Initial Treatment Plan 1. Patient was admitted on a 9.39 status. 2. Complete history was obtained. 3. With patients permission, family will be contacted and database will be expanded. 4. Patients medication regimen will be reviewed and changed accordingly. 5. Patient will be provided with protected environment. 6. Patient will be treated with individual, group, and milieu therapies. 7. Patient will receive supportive psych-education. 8. Discharge planning will commence immediately. 9. Outpatient follow-up treatment will be strongly recommended. 10. The initial treatment plan will focus initially on: * Depression. * Risk for suicide. 11. d/c yolaonoanitha, aparna protocol for benzo withdrawal, restart effexor and abilify ESTIMATED LENGTH OF STAY: 7-10 DAYS. TIME SPENT COUNSELING AND COORDINATING INITIAL CARE: 60 minutes. Vital Signs Vital Signs Date Time Temp Pulse Resp B/P (MAP) Pulse Ox O2 Delivery O2 Flow Rate FiO2 01/05/19 06:27 99.7 86 16 107/64 (78) 01/04/19 12:02 98 01/04/19 10:54 Room Air 01/04/19 03:30 2.0 Laboratory Data 24H Labs Laboratory Tests 2 01/05/19 06:52: Immature Granulocyte % (Auto) 0.2, White Blood Count 5.5, Red Blood Count 5.13, Hemoglobin 15.0, Hematocrit 44.7, Mean Corpuscular Volume 87.1, Mean Corpuscular Hemoglobin 29.2, Mean Corpuscular Hemoglobin Concent 33.6, Red Cell Distribution Width 12.4, Platelet Count 126L, Neutrophils (%) (Auto) 44.1, Lymphocytes (%) (Auto) 42.6, Monocytes (%) (Auto) 7.3H, Eosinophils (%) (Auto) 4.9H, Basophils (%) (Auto) 0.9, Neutrophils # (Auto) 2.4, Lymphocytes # (Auto) 2.3, Monocytes # (Auto) 0.4, Eosinophils # (Auto) 0.3, Basophils # (Auto) 0.1, Nucleated Red Blood Cells % (auto) 0.0, Anion Gap 6L, Glomerular Filtration Rate 56.4, Blood Urea Nitrogen 19H, Creatinine 1.40H, Sodium Level 139, Potassium Level 4.6, Chloride Level 106, Carbon Dioxide Level 27, Calcium Level 8.9, Aspartate Amino Transf (AST/SGOT) 36, Alanine Aminotransferase (ALT/SGPT) 74, Alkaline Phosphatase 125H, Total Bilirubin 0.6, Total Protein 6.9, Albumin 3.5, Albumin/Globulin Ratio 1.03 CBC/BMP Laboratory Tests 01/05/19 06:52 Red Blood Count 5.13, Mean Corpuscular Volume 87.1, Mean Corpuscular Hemoglobin 29.2, Mean Corpuscular Hemoglobin Concent 33.6, Red Cell Distribution Width 12.4, Neutrophils (%) (Auto) 44.1, Lymphocytes (%) (Auto) 42.6, Monocytes (%) (Auto) 7.3 H, Eosinophils (%) (Auto) 4.9 H, Basophils (%) (Auto) 0.9, Neutrophils # (Auto) 2.4, Lymphocytes # (Auto) 2.3, Monocytes # (Auto) 0.4, Eosinophils # (Auto) 0.3, Basophils # (Auto) 0.1, Calcium Level 8.9, Aspartate Amino Transf (AST/SGOT) 36, Alanine Aminotransferase (ALT/SGPT) 74, Alkaline Phosphatase 125 H, Total Bilirubin 0.6, Total Protein 6.9, Albumin 3.5 Medications Scheduled Aripiprazole (Abilify) 5 Mg Tablet, 5 MG PO QHS, (Reported) Atorvastatin Calcium (Atorvastatin Calcium) 20 Mg Tablet, 20 MG PO QHS, (Reported) Bupropion HCl (Bupropion Xl) 300 Mg Tab.er.24h, 300 MG PO QHS, (Reported) Desvenlafaxine Succinate (Desvenlafaxine Succinate ER) 100 Mg Tab.er.24h, 100 MG PO QHS, (Reported) Emtricitabine/Tenofovir (Truvada 200 mg-300 mg Tablet) 1 Each Tablet, 1 TAB PO QHS, (Reported) Scheduled PRN Clonazepam (Clonazepam) 1 Mg Tab.rapdis, 1 MG PO BID PRN for ANXIETY, (Reported) Zolpidem Tartrate (Ambien) 10 Mg Tab, 10 MG PO QHS PRN for SLEEP, (Reported) Allergies Coded Allergies: No Known Allergies (Unverified , 01/03/19) ELAINE HUTCHINSON DO Jan 05, 2019 11:23 am
[2019-01-05] MEDS: ATORVASTATIN 20 MG TAB PO SCH (20:08)
[2019-01-05] MEDS: TRUVADA 200MG/300MG TABLET PO SCH (20:08)
[2019-01-05] MEDS: traZODone 50 MG TAB PO PRN (20:09)
[2019-01-06 06:14] VITALS: BP 105/61
[2019-01-06] MEDS: VENLAFAXINE **XR** 75MG CAPSULE PO SCH (08:47)
[2019-01-06] MEDS: PANTOPRAZOLE 40MG TAB (PROTONIX) PO SCH (08:47)
--- NOTE | 2019-01-06 09:50 | MHIPNPDOC ---
[facility] Progress Note Progress Note DATE OF SERVICE: 01/06/19 HISTORY: Patient is a 53 -year-old , male, has a history of depression and 1 prior admission [facility] 11/2016 s/p OD klonopin who was brought to ED by PD under 9.41 after pt text a friend in [place] and his a suicide message then took 40+ Klonopin and a lot of alcohol he stated in the ED so he could sleep b/c he had not eaten or slept in 3 days. Pt utox positive amphetamines in ED which he was mostly like abusing (common among homosexual men for engagement in sexual activities with strangers they meet on live) causing him inability to sleep and poor appetite. Pt in ED, lethargic stating he didn't need to be admitted and just could sleep. He did admit to relationship problems with his causing his to stay with a friend prior to pt's OD. Pt seen and states he's "not doing so good" b/c his won't answer the phone after they had had a fight a few days ago prior pt's admission regarding forgetting an interview with immigration for his as he's [employer] and his getting angry with pt's son who lives with them and let to stay with one of his [facility] friends causing pt to text him something not nice so now he won't answer pt's calls. States he believes what he needs to do to improve is focus on his family as they are very supportive (willing to have pt stay with them when pt feels he needs to rather than on just his which pt states he's become dependent on. Continues to endorse depression and is very flat and monothymic when seen. States in the past he had been prescribed adderall but st opped taking due to some unknown reason but had some left over and took 1 2 days ago b/c he thought it would help him sleep. Not very reliable. Pt states his outpatient effexor xr and abilify beneficial and would like to restart. Pt informed that he overdosed on Klonopin twice showing the he has poor ability to manage drug safely so therefore will d/c and provided vistaril prn anxiety which is much safer and nonaddictive which he was ok with. Denies current SI/HI, hallucinations, delusions. Feels safe here. VITAL SIGNS: See below. NEW TEST RESULTS: See below. CURRENT MEDICATIONS: See below. MENTAL STATUS EXAMINATION: General Appearance: well groomed, appears stated age, hospital scrubs/clothing Build: average Demeanor: other (divoide of emotion, almost robot like) Eye Contact: intense Activity: less slowed, other (less blunted and robot like) Behavior: cooperative Speech: clear Mood: less depressed Mood "better" Affect: less constricted, flat Thought Process: logical/linear, concrete, less depressed, lessslow Thought Content (Delusions): none reported, denies SI, HI, AVH Thought Content (Other): none reported, appropriate Thought Content (Aggressive): none reported Perception (Hallucinations): none reported Perception (Other): none reported Cognition (Impairment of): none reported Cognition(Intelligence Est.): average Oriented: Awake, Alert, Oriented times three Insight: fair Judgment: Fair Psychosis: Denies DIAGNOSES: 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 States he's been relying on his for support rene rather than thinking about his family and kids which he believes has causing relationship problem with his and is focused on reconnecting more with his family and kids and not just looking toward his for support and time. States his family came to visit him yesterday which he enjoyed. He appears less depressed, flat, and robot like today. States he slept well last night. Feels he is tolerating his medications and they're beneficial. C/O of heartburn during to day and agreeable to increase protonix to 60mg daily to relieve. He is attending groups and finding them helpful. He denies SI/HI, hallucinations, delusions. Pt feels safe here. MANAGEMENT PLAN: continue plan medications: [facility] protocol for benzo withdrawal effexor 225mg daily abilify 5mg qhs TIME SPENT: 30 minutes. Vital Signs Vital Signs Date Time Temp Pulse Resp B/P (MAP) Pulse Ox O2 Delivery O2 Flow Rate FiO2 01/06/19 06:14 99.6 81 16 105/61 (76) 01/04/19 12:02 98 01/04/19 10:54 Room Air 01/04/19 03:30 2.0 Current Medications Current Medications Medications (Trade) Dose Ordered Sig/Junior Route PRN Reason Start Time Stop Time Status Last Admin Dose Admin Acetaminophen (Tylenol Tab) 650 mg Q6HP PRN PO HEADACHE or DISCOMFORT 01/04/19 11:00 Al Hydrox/Mg Hydrox/Simethicone (Mylanta) 30 ml Q4HP PRN PO HEARTBURN/INDIGESTION 01/04/19 11:00 01/05/19 20:09 Aripiprazole (AbiLIFY) 5 mg QHS PO 01/04/19 21:00 01/05/19 20:08 Atorvastatin Calcium (Lipitor) 20 mg QHS PO 01/04/19 21:00 01/05/19 20:08 Emtricitabine/ Tenofovir (Truvada) 1 tab QHS PO 01/04/19 21:00 01/05/19 20:08 Home Med (Med Rec Complete!) ASDIRECTED XX 01/04/19 10:15 01/04/19 10:15 DC Magnesium Hydroxide (Milk Of Magnesia) 30 ml DAILYPRN PRN PO CONSTIPATION 01/04/19 11:00 Pantoprazole Sodium (Protonix) 40 mg DAILY PO 01/05/19 09:00 01/06/19 08:47 Trazodone HCl (Desyrel) 50 mg QHSP PRN PO INSOMNIA 01/04/19 11:00 01/05/19 20:09 Venlafaxine HCl (Effexor Xr) 225 mg DAILY PO 01/05/19 09:00 01/06/19 08:47 Allergies Coded Allergies: No Known Allergies (Unverified , 01/03/19) ELAINE HUTCHINSON DO Jan 06, 2019 9:50 am
[2019-01-06] MEDS ORDERED: PANTOPRAZOLE 20 MG TAB PO ONE (11:00)
[2019-01-06 16:07] VITALS: BP 109/77
[2019-01-06] MEDS: ATORVASTATIN 20 MG TAB PO SCH (20:20)
[2019-01-06] MEDS: TRUVADA 200MG/300MG TABLET PO SCH (20:20)
[2019-01-06] MEDS: traZODone 50 MG TAB PO PRN (20:20)
[2019-01-07 06:03] VITALS: BP 99/54
[2019-01-07] MEDS: PANTOPRAZOLE 20 MG TAB PO SCH (08:13)
[2019-01-07] MEDS: VENLAFAXINE **XR** 75MG CAPSULE PO SCH (08:14)
[2019-01-07 15:36] VITALS: BP 127/85
[2019-01-07] MEDS: ATORVASTATIN 20 MG TAB PO SCH (20:05)
[2019-01-07] MEDS: TRUVADA 200MG/300MG TABLET PO SCH (20:05)
[2019-01-07] MEDS: traZODone 50 MG TAB PO PRN (20:05)
[2019-01-08 06:39] VITALS: BP 94/56
[2019-01-08] MEDS: VENLAFAXINE **XR** 75MG CAPSULE PO SCH (08:21)
[2019-01-08] MEDS: PANTOPRAZOLE 20 MG TAB PO SCH (08:21)
--- NOTE | 2019-01-08 09:18 | MHIPNPDOC ---
[facility] Progress Note Progress Note DATE OF SERVICE: 01/07/19 HISTORY: Patient is a 53 -year-old , male, has a history of depression and 1 prior admission [facility] 11/2016 s/p OD klonopin who was brought to ED by PD under 9.41 after pt text a friend in [place] and his a suicide message then took 40+ Klonopin and a lot of alcohol he stated in the ED so he could sleep b/c he had not eaten or slept in 3 days. Pt utox positive amphetamines in ED which he was mostly like abusing (common among homosexual men for engagement in sexual activities with strangers they meet on live) causing him inability to sleep and poor appetite. Pt in ED, lethargic stating he didn't need to be admitted and just could sleep. He did admit to relationship problems with his causing his to stay with a friend prior to pt's OD. Pt seen and states he's "not doing so good" b/c his won't answer the phone after they had had a fight a few days ago prior pt's admission regarding forgetting an interview with immigration for his as he's [employer] and his getting angry with pt's son who lives with them and let to stay with one of his [facility] friends causing pt to text him something not nice so now he won't answer pt's calls. States he believes what he needs to do to improve is focus on his family as they are very supportive (willing to have pt stay with them when pt feels he needs to rather than on just his which pt states he's become dependent on. Continues to endorse depression and is very flat and monothymic when seen. States in the past he had been prescribed adderall but st opped taking due to some unknown reason but had some left over and took 1 2 days ago b/c he thought it would help him sleep. Not very reliable. Pt states his outpatient effexor xr and abilify beneficial and would like to restart. Pt informed that he overdosed on Klonopin twice showing the he has poor ability to manage drug safely so therefore will d/c and provided vistaril prn anxiety which is much safer and nonaddictive which he was ok with. Denies current SI/HI, hallucinations, delusions. Feels safe here. VITAL SIGNS: See below. NEW TEST RESULTS: See below. CURRENT MEDICATIONS: See below. MENTAL STATUS EXAMINATION: General Appearance: well groomed, appears stated age, hospital scrubs/clothing Build: average Demeanor: other (divide of emotion, almost robot like)- improved from day prior. Eye Contact: intense Activity: less slowed, other (less blunted and robot like)- improved from day prior Behavior: cooperative Speech: clear Mood: less depressed Mood "doing good" Affect: less constricted, flat Thought Process: logical/linear, concrete, less depressed, lessslow Thought Content (Delusions): none reported, denies SI, HI, AVH Thought Content (Other): none reported, appropriate Thought Content (Aggressive): none reported Perception (Hallucinations): none reported Perception (Other): none reported Cognition (Impairment of): none reported Cognition(Intelligence Est.): average Oriented: Awake, Alert, Oriented times three Insight: improving Judgment: Improving. 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 He is tolerating his medications well and notes no side effects. He is speaking with his family members but has yet to reach out to his and plans on doing so today. He also plans on staying at his parents house when he is discharged just to help him transition back. Patient continues to sleep well and continues to attend group with good benefit. He appears less depressed, flat, and robot-like than in days prior. He denies SI/HI/AVH. Patient feels safe here. MANAGEMENT PLAN: continue plan medications: [facility] protocol for benzo withdrawal effexor 225mg daily abilify 5mg qhs TIME SPENT: 30 minutes. Vital Signs Vital Signs Date Time Temp Pulse Resp B/P (MAP) Pulse Ox O2 Delivery O2 Flow Rate FiO2 01/07/19 06:03 97.9 85 14 99/54 (69) 01/04/19 12:02 98 01/04/19 10:54 Room Air 01/04/19 03:30 2.0 Current Medications Current Medications Medications (Trade) Dose Ordered Sig/Junior Route PRN Reason Start Time Stop Time Status Last Admin Dose Admin Acetaminophen (Tylenol Tab) 650 mg Q6HP PRN PO HEADACHE or DISCOMFORT 01/04/19 11:00 Al Hydrox/Mg Hydrox/Simethicone (Mylanta) 30 ml Q4HP PRN PO HEARTBURN/INDIGESTION 01/04/19 11:00 01/05/19 20:09 Aripiprazole (AbiLIFY) 5 mg QHS PO 01/04/19 21:00 01/06/19 20:20 Atorvastatin Calcium (Lipitor) 20 mg QHS PO 01/04/19 21:00 01/06/19 20:20 Emtricitabine/ Tenofovir (Truvada) 1 tab QHS PO 01/04/19 21:00 01/06/19 20:20 Home Med (Med Rec Complete!) ASDIRECTED XX 01/04/19 10:15 01/04/19 10:15 DC Magnesium Hydroxide (Milk Of Magnesia) 30 ml DAILYPRN PRN PO CONSTIPATION 01/04/19 11:00 Pantoprazole Sodium (Protonix) 40 mg DAILY PO 01/05/19 09:00 01/06/19 09:51 DC 01/06/19 08:47 Pantoprazole Sodium (Protonix) 60 mg DAILY PO 01/07/19 09:00 01/07/19 08:13 Trazodone HCl (Desyrel) 50 mg QHSP PRN PO INSOMNIA 01/04/19 11:00 01/06/19 20:20 Venlafaxine HCl (Effexor Xr) 225 mg DAILY PO 01/05/19 09:00 01/07/19 08:14 Allergies Coded Allergies: No Known Allergies (Unverified , 01/03/19) ELAINE HUTCHINSON DO Jan 07, 2019 10:08 am
--- NOTE | 2019-01-08 09:25 | MHIPNPDOC ---
[facility] Progress Note Progress Note DATE OF SERVICE: 01/08/19 HISTORY: Patient is a 53 -year-old , male, has a history of depression and 1 prior admission [facility] 11/2016 s/p OD klonopin who was brought to ED by PD under 9.41 after pt text a friend in [place] and his a suicide message then took 40+ Klonopin and a lot of alcohol he stated in the ED so he could sleep b/c he had not eaten or slept in 3 days. Pt utox positive amphetamines in ED which he was mostly like abusing (common among homosexual men for engagement in sexual activities with strangers they meet on live) causing him inability to sleep and poor appetite. Pt in ED, lethargic stating he didn't need to be admitted and just could sleep. He did admit to relationship problems with his causing his to stay with a friend prior to pt's OD. Pt seen and states he's "not doing so good" b/c his won't answer the phone after they had had a fight a few days ago prior pt's admission regarding forgetting an interview with immigration for his as he's [employer] and his getting angry with pt's son who lives with them and let to stay with one of his [facility] friends causing pt to text him something not nice so now he won't answer pt's calls. States he believes what he needs to do to improve is focus on his family as they are very supportive (willing to have pt stay with them when pt feels he needs to rather than on just his which pt states he's become dependent on. Continues to endorse depression and is very flat and monothymic when seen. States in the past he had been prescribed adderall but st opped taking due to some unknown reason but had some left over and took 1 2 days ago b/c he thought it would help him sleep. Not very reliable. Pt states his outpatient effexor xr and abilify beneficial and would like to restart. Pt informed that he overdosed on Klonopin twice showing the he has poor ability to manage drug safely so therefore will d/c and provided vistaril prn anxiety which is much safer and nonaddictive which he was ok with. Denies current SI/HI, hallucinations, delusions. Feels safe here. VITAL SIGNS: See below. NEW TEST RESULTS: See below. CURRENT MEDICATIONS: See below. MENTAL STATUS EXAMINATION: General Appearance: well groomed, appears stated age, hospital scrubs/clothing Build: average Demeanor: other (divide of emotion, almost robot like)- improved from day prior. Eye Contact: intense Activity: less slowed, other (less blunted and robot like)- improved from day prior Behavior: cooperative Speech: clear Mood: less depressed Mood "doing good" Affect: more euthymic and full Thought Process: logical/linear, concrete, less depressed Thought Content (Delusions): none reported, denies SI, HI, AVH Thought Content (Other): none reported, appropriate Thought Content (Aggressive): none reported Perception (Hallucinations): none reported Perception (Other): none reported Cognition (Impairment of): none reported Cognition(Intelligence Est.): average Oriented: Awake, Alert, Oriented times three Insight: improving Judgment: Improving. 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 He is tolerating his medications well and notes no side effects. He continues to speak with his family members who are very supportive and hopes to continue to reconnect with them as he progresses to improved mood. He has yet to reach out to his and states "he'll come around when he's ready" as states his has asked for some space to focus on himself and his needs as the pt does the same. He also plans on staying at his parents house when he is discharged just to help him transition back. Patient continues to sleep well and continues to attend group with good benefit. He appears less depressed, flat, and robot-like than in days prior. He denies SI/HI/AVH. Patient feels safe here. MANAGEMENT PLAN: continue plan medications: [facility] protocol for benzo withdrawal effexor 225mg daily abilify 5mg qhs TIME SPENT: 30 minutes. Vital Signs Vital Signs Date Time Temp Pulse Resp B/P (MAP) Pulse Ox O2 Delivery O2 Flow Rate FiO2 01/08/19 06:39 98.8 78 16 94/56 (69) 01/04/19 12:02 98 01/04/19 10:54 Room Air 01/04/19 03:30 2.0 Current Medications Current Medications Medications (Trade) Dose Ordered Sig/Junior Route PRN Reason Start Time Stop Time Status Last Admin Dose Admin Acetaminophen (Tylenol Tab) 650 mg Q6HP PRN PO HEADACHE or DISCOMFORT 01/04/19 11:00 Al Hydrox/Mg Hydrox/Simethicone (Mylanta) 30 ml Q4HP PRN PO HEARTBURN/INDIGESTION 01/04/19 11:00 01/05/19 20:09 Aripiprazole (AbiLIFY) 5 mg QHS PO 01/04/19 21:00 01/07/19 20:05 Atorvastatin Calcium (Lipitor) 20 mg QHS PO 01/04/19 21:00 01/07/19 20:05 Emtricitabine/ Tenofovir (Truvada) 1 tab QHS PO 01/04/19 21:00 01/07/19 20:05 Home Med (Med Rec Complete!) ASDIRECTED XX 01/04/19 10:15 01/04/19 10:15 DC Magnesium Hydroxide (Milk Of Magnesia) 30 ml DAILYPRN PRN PO CONSTIPATION 01/04/19 11:00 Pantoprazole Sodium (Protonix) 40 mg DAILY PO 01/05/19 09:00 01/06/19 09:51 DC 01/06/19 08:47 Pantoprazole Sodium (Protonix) 60 mg DAILY PO 01/07/19 09:00 01/08/19 08:21 Trazodone HCl (Desyrel) 50 mg QHSP PRN PO INSOMNIA 01/04/19 11:00 01/07/19 20:05 Venlafaxine HCl (Effexor Xr) 225 mg DAILY PO 01/05/19 09:00 01/08/19 08:21 Allergies Coded Allergies: No Known Allergies (Unverified , 01/03/19) ELAINE HUTCHINSON DO Jan 08, 2019 9:25 am
[2019-01-08 16:03] VITALS: BP 113/74
[2019-01-08] MEDS: TRUVADA 200MG/300MG TABLET PO SCH (20:27)
[2019-01-08] MEDS: traZODone 50 MG TAB PO PRN (20:27)
[2019-01-08] MEDS: ATORVASTATIN 20 MG TAB PO SCH (20:27)
[2019-01-09 06:19] VITALS: BP 105/61
[2019-01-09] MEDS ORDERED: VENL75CA47 PO (08:31)
[2019-01-09] MEDS ORDERED: ABIL1TAB11 PO (08:31)
[2019-01-09] MEDS ORDERED: TRAZ-252 PO ×2 (08:31→09:59)
--- NOTE | 2019-01-09 08:31 | MHDSPDOC ---
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 Pt utox positive amphetamines in ED which he was mostly like abusing (common among homosexual men for engagement in sexual activities with strangers they meet on live) causing him inability to sleep and poor appetite. Pt in ED, lethargic stating he didn't need to be admitted and just could sleep. He did admit to relationship problems with his causing his to stay with a friend prior to pt's OD. Pt seen and states he's "not doing so good" b/c his won't answer the phone after they had had a fight a few days ago prior pt's admission regarding forgetting an interview with immigration for his as he's [facility] and his getting angry with pt's son who lives with them and let to stay with one of his [facility] friends causing pt to text him something not nice so now he won't answer pt's calls. States he believes what he needs to do to improve is focus on his family as they are very supportive (willing to have pt stay with them when pt feels he needs to rather than on just his which pt states he's become dependent on. Continues to endorse depression and is very flat and monothymic when seen. States in the past he had been prescribed adderall but stopped taking due to some unknown reason but had some left over and took 1 2 days ago b/c he thought it would help him sleep. Not very reliable. Pt states his outpatient effexor xr and abilify beneficial and would like to restart. Pt informed that he overdosed on Klonopin twice showing the he has poor ability to manage drug safely so therefore will d/c and provided vistaril prn anxiety which is much safer and nonaddictive which he was ok with. Denies current SI/HI, hallucinations, delusions. Feels safe here. CONSULTANTS INVOLVED: TREATMENT AND PROGRESS ON THE UNIT : Pt was admitted to [facility], seen for psychiatric assessment and restarted on his outpatient medication effexor xr 225mg daiy and abilify 5mg qhs. His klonopin was discontinued s/p OD and he was started on a [facility] protocol for benzo withdrawal which he did not experience during his stay and therefore did not require any ativan for withdrawal symptoms. He was provided trazodone 50mg qhs prn insomnia. Pt found his medications beneficial and tolerated them well. He attended groups daily during his stay. His symptoms improved with treatment. On day of discharge he denied depression, anxiety, insomnia, SI/HI, hallucinations, delusions. He was discharged home with follow-up at [facility]. He felt safe for discharge. DISCHARGE ASSESSMENT: Pt seen and states he is doing good today and is looking forward to going home today with his family who are very supportive. He is tolerating his medications well and notes no side effects, feels they're beneficial. He continues to speak with his family members who are very supportive and hopes to continue to reconnect with them as he progresses to improved mood. He also plans on staying at his parents house when he is discharged just to help him transition back. Patient continues to sleep well and continues to attend group with good benefit. He appears euthymic and full range. He denies depression, anxiety, insomnia, SI/HI, hallucinations, delusions. Patient feels safe to discharge home today. MENTAL STATUS EXAMINATION ON DISCHARGE: General Appearance: well groomed, appears stated age, own clothing Build: average Demeanor: cooperative Eye Contact: good Activity: average Behavior: cooperative Speech: clear Mood: euthymic, full Mood "good" Affect: euthymic and full, congruent Thought Process: logical/linear Thought Content (Delusions): none reported, denies SI, HI, AVH Thought Content (Other): none reported, appropriate Thought Content (Aggressive): none reported Perception (Hallucinations): none reported Perception (Other): none reported Cognition (Impairment of): none reported Cognition(Intelligence Est.): average Oriented: Awake, Alert, Oriented times three Insight: good Judgment: good. Psychosis: Denies MEDICATIONS ON DISCHARGE: effexor 225mg daily abilify 5mg qhs trazodone 50mg qhs prn insomnia PLAN/FOLLOWUP ARRANGEMENTS: D/c home with follow-up at [facility] The amount of time spent in the coordination of care for this patient was approximately 30 minutes. Vital Signs/I&Os Vital Signs Date Time Temp Pulse Resp B/P (MAP) Pulse Ox O2 Delivery O2 Flow Rate FiO2 01/09/19 06:19 97.4 75 16 105/61 (76) 01/04/19 12:02 98 01/04/19 10:54 Room Air 01/04/19 03:30 2.0 Medications Scheduled Aripiprazole (Abilify) 5 Mg Tablet, 5 MG PO QHS, (Reported) Atorvastatin Calcium (Atorvastatin Calcium) 20 Mg Tablet, 20 MG PO QHS, (Reported) Bupropion HCl (Bupropion Xl) 300 Mg Tab.er.24h, 300 MG PO QHS, (Reported) Desvenlafaxine Succinate (Desvenlafaxine Succinate ER) 100 Mg Tab.er.24h, 100 MG PO QHS, (Reported) Emtricitabine/Tenofovir (Truvada 200 mg-300 mg Tablet) 1 Each Tablet, 1 TAB PO QHS, (Reported) Scheduled PRN Clonazepam (Clonazepam) 1 Mg Tab.rapdis, 1 MG PO BID PRN for ANXIETY, (Reported) Zolpidem Tartrate (Ambien) 10 Mg Tab, 10 MG PO QHS PRN for SLEEP, (Reported) Allergies Coded Allergies: No Known Allergies (Unverified , 01/03/19) ELAINE HUTCHINSON DO Jan 09, 2019 8:31 am
[2019-01-09] MEDS: VENLAFAXINE **XR** 75MG CAPSULE PO SCH (08:43)
[2019-01-09] MEDS: PANTOPRAZOLE 20 MG TAB PO SCH (08:44)
== END 2019-01-09 10:05 | disposition home or self-care (01) | DRG 751 ==
LOC: M ED 22:36 → M ED INP 01-04 10:46 → M PSY 01-04 11:55
PROVIDERS: ADMIT Psychiatry & Neurology Psychiatry; ATTEND Psychiatry & Neurology Psychiatry
DX: F33.2 Major depressive disorder, recurrent severe without psychotic features (principal); D72.829 Elevated white blood cell count, unspecified; F41.9 Anxiety disorder, unspecified; F60.7 Dependent personality disorder; F15.90 Other stimulant use, unspecified, uncomplicated; Z79.899 Other long term (current) drug therapy; J45.909 Unspecified asthma, uncomplicated; E78.00 Pure hypercholesterolemia, unspecified; K21.9 Gastro-esophageal reflux disease without esophagitis

== ENCOUNTER → 2019-04-23 | Outpatient (REF) | payer OTHER ==
[~2019-04-23] MED LIST changes: +ATOR1TAB21 PO; +BUPR300T92 PO; +CLON1TAB17 PO; +DESV100T3 PO; +TRAZ-252 PO; +TRUVTAB PO; +VENL75CA47 PO
== END ==
LOC: M SFHCPLAZ 14:26
PROVIDERS: ATTEND Family Medicine
DX: Z11.4 Encounter for screening for human immunodeficiency virus [HIV] (principal)

== ENCOUNTER → 2019-06-07 | Outpatient (REF) | payer OTHER ==
[2019-06-07 15:53] LABS: ALBUMIN 3.9 GM/DL (3.2-5.2); ALT/SGPT 39 U/L (12-78); BASO # 0.1 10^3/uL (0.0-0.2); BASO % 0.7 % (0.0-1.0); BILIRUBIN,TOTAL 0.2 MG/DL (0.2-1.0); BLOOD UREA NITROGEN 18 MG/DL (7-18); CALCIUM LEVEL 8.9 MG/DL (8.5-10.1); CARBON DIOXIDE LEVEL 30 MEQ/L (21-32); CHLORIDE LEVEL 103 MEQ/L (98-107); CHOLESTEROL LEVEL 299 MG/DL (<200); CHOLESTEROL RISK RATIO 7.666 (<5); CREATININE FOR GFR 1.04 MG/DL (0.70-1.30); EOS # 0.2 10^3/uL (0.0-0.5); EOS % 1.5 % (0.0-3.0); GLOMERULAR FILTRATION RATE > 60.0 (>56); GLUCOSE, FASTING 80 MG/DL (70-100); HDL CHOLESTEROL 39 MG/DL (>40); HEMATOCRIT 43.1 % (42.0-52.0); HEMOGLOBIN 14.4 g/dl (13.5-17.5); LDL CHOLESTEROL 208 MG/DL (<100); LYMPH % 39.2 % (24.0-44.0); MEAN CORPUSCULAR HEMOGLOBIN 29.4 pg (27.0-33.0); MEAN CORPUSCULAR HGB CONC 33.4 g/dl (32.0-36.5); MONO # 0.9 10^3/uL (0.0-0.8); MONO % 8.3 % (0.0-5.0); NEUTROPHILS # 5.2 10^3/uL (1.5-8.5); NON-HDL-C 260 MG/DL; PLATELET COUNT, AUTOMATED 202 10^3/uL (150-450); POTASSIUM SERUM 3.9 MEQ/L (3.5-5.1); SODIUM LEVEL 138 MEQ/L (136-145); TOTAL PROTEIN 7.5 GM/DL (6.4-8.2); TRIGLYCERIDES LEVEL 259 MG/DL (<150); WHITE BLOOD COUNT 10.3 10^3/uL (4.0-10.0)
== END ==
LOC: M LABDRAW1 13:50
PROVIDERS: ATTEND Nurse Practitioner Family
DX: Z00.00 Encounter for general adult medical examination without abnormal findings (principal)

== ENCOUNTER → 2020-06-22 | Outpatient (CLI) | payer OTHER ==
[2020-06-22 13:02] LABS: ALBUMIN 4.1 GM/DL (3.2-5.2); ALT/SGPT 54 U/L (12-78); BILIRUBIN,TOTAL 0.3 MG/DL (0.2-1.0); BLOOD UREA NITROGEN 21 MG/DL (7-18); CALCIUM LEVEL 9.8 MG/DL (8.5-10.1); CARBON DIOXIDE LEVEL 30 MEQ/L (21-32); CHLORIDE LEVEL 106 MEQ/L (98-107); CHOLESTEROL LEVEL 166 MG/DL (<200); CHOLESTEROL RISK RATIO 3.688 (<5); CREATININE FOR GFR 1.02 MG/DL (0.70-1.30); GLOMERULAR FILTRATION RATE > 60.0 (>56); GLUCOSE, FASTING 93 MG/DL (70-100); HDL CHOLESTEROL 45 MG/DL (>40); LDL CHOLESTEROL 98 MG/DL (<100); NON-HDL-C 121 MG/DL; POTASSIUM SERUM 4.9 MEQ/L (3.5-5.1); SODIUM LEVEL 139 MEQ/L (136-145); TOTAL PROTEIN 7.5 GM/DL (6.4-8.2); TRIGLYCERIDES LEVEL 117 MG/DL (<150)
== END ==
LOC: M WUC 09:33
PROVIDERS: ATTEND Nurse Practitioner Family
DX: E78.2 Mixed hyperlipidemia (principal)

== ENCOUNTER → 2021-03-17 | Outpatient (CLI) | payer OTHER ==
[~2021-03-17] MED LIST changes: +EMTR1TAB16 PO; -PREV15CA18 PO; +PREV15CA24 PO; -TRUVTAB PO
== END ==
LOC: M PLALAB 08:20
PROVIDERS: ATTEND Urology
DX: N52.9 Male erectile dysfunction, unspecified (principal); Z12.5 Encounter for screening for malignant neoplasm of prostate

== ENCOUNTER → 2021-04-27 | Outpatient (CLI) | payer OTHER | LOC: M LAB 16:09 | PROVIDERS: ATTEND Nurse Practitioner Family | DX: E78.2 Mixed hyperlipidemia (principal); Z20.6 Contact with and (suspected) exposure to human immunodeficiency virus [HIV] ==

== ENCOUNTER → 2021-06-23 | Outpatient (CLI) | payer OTHER | LOC: M LAB 14:58 | PROVIDERS: ATTEND Nurse Practitioner Family | DX: Z11.3 Encounter for screening for infections with a predominantly sexual mode of transmission (principal) ==

== ENCOUNTER → 2021-09-21 | Outpatient (CLI) | payer OTHER | LOC: M PLALAB 14:13 | PROVIDERS: ATTEND Urology | DX: R97.20 Elevated prostate specific antigen [PSA] (principal) ==

== ENCOUNTER → 2021-12-01 | Outpatient (CLI) | payer OTHER | LOC: M PLALAB 15:37 | PROVIDERS: ATTEND Nurse Practitioner Family | DX: Z11.3 Encounter for screening for infections with a predominantly sexual mode of transmission (principal) ==

== ENCOUNTER → 2022-04-10 | Outpatient (CLI) | payer OTHER ==
[~2022-04-10] MED LIST changes: +AMPH1CAP5 PO; +ARIP10TA32 PO; +LANS30CA93 PO; +LORA-674 PO; +TADA5TAB PO; +VALA500T5 PO
== END ==
LOC: M LABSMTC 12:07
PROVIDERS: ATTEND Anesthesiology
DX: Z01.812 Encounter for preprocedural laboratory examination (principal); Z11.52 Encounter for screening for COVID-19

== ENCOUNTER 2022-04-15 13:14 | Day surgery (SDC) | payer OTHER ==
[~2022-04-15] VITALS: Ht 172.7 cm; Wt 81.7 kg
[~2022-04-15 13:14] MED LIST changes: +NS 1,000 ML IV ONE
[2022-04-15] MEDS ORDERED: propofoL 200 MG/20 ML VIAL As Ordered ONE ×2 (13:52→14:03)
[2022-04-15] MEDS ORDERED: LIDOCAINE 2% 100MG/5ML SDV (FOR ANES.) As Ordered ONE (13:52)
[2022-04-15 14:35] VITALS: BP 102/62
== END 2022-04-15 14:42 | disposition home or self-care (01) ==
LOC: M OPP 13:14
PROVIDERS: ATTEND Surgery
DX: Z12.11 Encounter for screening for malignant neoplasm of colon (principal); Z86.010 Personal history of colon polyps; Z80.0 Family history of malignant neoplasm of digestive organs; K63.5 Polyp of colon; Z79.899 Other long term (current) drug therapy; Z79.02 Long term (current) use of antithrombotics/antiplatelets; E78.00 Pure hypercholesterolemia, unspecified; F32.9 Major depressive disorder, single episode, unspecified; F41.9 Anxiety disorder, unspecified; Z87.891 Personal history of nicotine dependence; Z87.438 Personal history of other diseases of male genital organs

== ENCOUNTER → 2022-04-22 | Outpatient (CLI) | payer OTHER ==
[~2022-04-22] MED LIST changes: -NS 1,000 ML IV ONE
[2022-04-22 15:00] LABS: ALBUMIN 3.8 G/DL (3.2-5.2); ALKALINE PHOSPHATASE 111 U/L (46-116); ALT/SGPT 40 U/L (7.0-40); AST/SGOT 25 U/L (<34); BILIRUBIN,TOTAL 0.5 MG/DL (0.3-1.2); BLOOD UREA NITROGEN 15 MG/DL (9-23); CALCIUM LEVEL 8.9 MG/DL (8.5-10.1); CARBON DIOXIDE LEVEL 29 MMOL/L (20-31); CHLORIDE LEVEL 104 MMOL/L (98-107); CHOLESTEROL LEVEL 138 MG/DL (<200); CHOLESTEROL RISK RATIO 3.56 (<5); CREATININE FOR GFR 1.09 MG/DL (0.70-1.30); GLOMERULAR FILTRATION RATE > 60.0 (>56); GLUCOSE, FASTING 88 MG/DL (60-100); HDL CHOLESTEROL 38.7 MG/DL (>40); LDL CHOLESTEROL 82.5 MG/DL (<100); NON-HDL-C 99 MG/DL; POTASSIUM SERUM 4.6 MMOL/L (3.5-5.1); SODIUM LEVEL 139 MMOL/L (136-145); TRIGLYCERIDES LEVEL 84 MG/DL (<150)
[2022-04-22 15:32] LABS: HIV 1&2 SCREEN CENTAUR NEGATIVE (NEGATIVE)
== END ==
LOC: M PLALAB 10:06
PROVIDERS: ATTEND Nurse Practitioner Family
DX: E78.2 Mixed hyperlipidemia (principal)

== ENCOUNTER → 2022-09-27 | Outpatient (CLI) | payer OTHER | LOC: M LAB 13:35 | PROVIDERS: ATTEND Urology | DX: N52.9 Male erectile dysfunction, unspecified (principal) ==

== ENCOUNTER → 2023-02-21 | Outpatient (CLI) | payer OTHER ==
[~2023-02-21] MED LIST changes: +CLON-952 PO; -KLON2TAB PO; +LORA-1041 PO; -LORA-674 PO
== END ==
LOC: M PLALAB 14:09
PROVIDERS: ATTEND Nurse Practitioner Family
DX: Z11.3 Encounter for screening for infections with a predominantly sexual mode of transmission (principal)

== ENCOUNTER → 2023-10-02 | Outpatient (CLI) | payer OTHER ==
[~2023-10-02] MED LIST changes: +BUPR-597 PO; -BUPR300T92 PO; -EFFE150C2 PO; +EFFE150C3 PO
== END ==
LOC: M PLALAB 13:30
PROVIDERS: ATTEND Urology
DX: N52.9 Male erectile dysfunction, unspecified (principal)

== ENCOUNTER → 2023-11-16 | Outpatient (CLI) | payer OTHER ==
[2023-11-16 11:20] LABS: HEPATITIS B SURFACE ANTIGEN NEGATIVE (NEGATIVE)
[2023-11-16 11:33] LABS: HIV 1&2 SCREEN NEGATIVE (NEGATIVE)
[2023-11-16 11:41] LABS: HEPATITIS C VIRUS ABY INDEX 0.16 INDEX (<0.8)
[2023-11-16 11:42] LABS: HEPATITIS B CORE ANTIBODY IGM NEGATIVE (NEGATIVE)
== END ==
LOC: M PLALAB 08:49
PROVIDERS: ATTEND Nurse Practitioner Family
DX: Z20.2 Contact with and (suspected) exposure to infections with a predominantly sexual mode of transmission (principal)

== ENCOUNTER 2023-12-12 23:45 | Emergency (ER) | payer OTHER ==
[~2023-12-12] VITALS: Ht 172.7 cm; Wt 86.0 kg
[2023-12-13] MEDS: PERCOCET 5MG/325MG TAB PO ONE (00:51)
[2023-12-13] MEDS: NS 1,000 ML IV ONE (00:52)
[2023-12-13 01:04] LABS: BASO % 0.2 % (0.0-1.0); EOS # 0.1 10^3/uL (0.0-0.5); EOS % 0.6 % (0.0-3.0); HEMOGLOBIN 13.4 g/dl (13.5-17.5); LYMPH # 1.5 10^3/uL (1.5-5.0); LYMPH % 12.1 % (24.0-44.0); MEAN CORPUSCULAR HEMOGLOBIN 30.5 pg (27.0-33.0); MEAN CORPUSCULAR HGB CONC 34.4 g/dl (32.0-36.5); MEAN CORPUSCULAR VOLUME 88.6 fl (80.0-96.0); MONO # 0.9 10^3/uL (0.0-0.8); MONO % 7.1 % (2.0-8.0); NEUTROPHILS # 10.1 10^3/uL (1.5-8.5); NEUTROPHILS % 79.8 % (36.0-66.0); PLATELET COUNT, AUTOMATED 149 10^3/uL (150-450); WHITE BLOOD COUNT 12.7 10^3/uL (4.0-10.0)
[2023-12-13 01:30] LABS: ALBUMIN 3.7 G/DL (3.2-5.2); BILIRUBIN,DIRECT 0.2 MG/DL (<0.4); BILIRUBIN,TOTAL 0.4 MG/DL (0.3-1.2); CREATININE FOR GFR 1.87 MG/DL (0.70-1.30); GLOMERULAR FILTRATION RATE 39.7 (>56); POTASSIUM SERUM 4.2 MMOL/L (3.5-5.1); TOTAL PROTEIN 6.4 G/DL (5.7-8.2)
[2023-12-13 02:01] VITALS: BP 126/78; TEMP 98.1; O2SAT 98
[2023-12-13] MEDS ORDERED: PERC5TAB12 PO (02:05)
[2023-12-13] MEDS: OXYCODONE/APAP 5MG/325MG(HOME DOSE PACK) PO ONE (02:35)
== END 2023-12-13 02:46 | disposition home or self-care (01) ==
LOC: M ED 23:45
DX: N20.1 Calculus of ureter (principal); K21.9 Gastro-esophageal reflux disease without esophagitis; F41.1 Generalized anxiety disorder; F90.9 Attention-deficit hyperactivity disorder, unspecified type; Z90.89 Acquired absence of other organs; Z87.442 Personal history of urinary calculi; Z79.02 Long term (current) use of antithrombotics/antiplatelets; Z79.899 Other long term (current) drug therapy

== ENCOUNTER → 2024-01-19 | Outpatient (CLI) | payer OTHER ==
[~2024-01-19] MED LIST changes: -ARIP10TA32 PO; +ARIP10TA63 PO; +PERC5TAB12 PO
[2024-01-19 18:25] LABS: BASO # 0.1 10^3/uL (0.0-0.2); BASO % 0.7 % (0.0-1.0); EOS # 0.2 10^3/uL (0.0-0.5); EOS % 1.7 % (0.0-3.0); HEMATOCRIT 40.6 % (42.0-52.0); LYMPH # 3.1 10^3/uL (1.5-5.0); LYMPH % 35.9 % (24.0-44.0); MEAN CORPUSCULAR HEMOGLOBIN 30.4 pg (27.0-33.0); MEAN CORPUSCULAR HGB CONC 34.5 g/dl (32.0-36.5); MEAN CORPUSCULAR VOLUME 88.3 fl (80.0-96.0); MONO # 0.5 10^3/uL (0.0-0.8); MONO % 5.6 % (2.0-8.0); NEUTROPHILS # 4.9 10^3/uL (1.5-8.5); NEUTROPHILS % 55.9 % (36.0-66.0); PLATELET COUNT, AUTOMATED 152 10^3/uL (150-450); WHITE BLOOD COUNT 8.7 10^3/uL (4.0-10.0)
[2024-01-19 18:42] LABS: ALBUMIN 3.7 G/DL (3.2-5.2); ALKALINE PHOSPHATASE 97 U/L (40-129); ALT/SGPT 34 U/L (7.0-40); AST/SGOT 18 U/L (<34); BILIRUBIN,TOTAL 0.5 MG/DL (0.3-1.2); BLOOD UREA NITROGEN 14 MG/DL (9-23); CALCIUM LEVEL 9.4 MG/DL (8.5-10.1); CARBON DIOXIDE LEVEL 29 MMOL/L (20-31); CHLORIDE LEVEL 107 MMOL/L (98-107); CHOLESTEROL LEVEL 128 MG/DL (<200); CHOLESTEROL RISK RATIO 4.08 (<5); CREATININE FOR GFR 1.17 MG/DL (0.70-1.30); GLOMERULAR FILTRATION RATE > 60.0 (>56); GLUCOSE, FASTING 93 MG/DL (60-100); HDL CHOLESTEROL 31.3 MG/DL (>40); LDL CHOLESTEROL 77.3 MG/DL (<100); NON-HDL-C 96.7 MG/DL; POTASSIUM SERUM 4.1 MMOL/L (3.5-5.1); SODIUM LEVEL 138 MMOL/L (136-145); TOTAL PROTEIN 6.6 G/DL (5.7-8.2); TRIGLYCERIDES LEVEL 97 MG/DL (<150)
[2024-01-19 18:44] LABS: FREE T4 1.27 NG/DL (0.89-1.76); THYROID STIMULATING HORMONE 2.093 uIU/ML (0.55-4.78)
[2024-01-19 19:01] LABS: HEPATITIS B SURFACE ANTIGEN NEGATIVE (NEGATIVE)
[2024-01-19 19:15] LABS: HIV 1&2 SCREEN NEGATIVE (NEGATIVE)
[2024-01-19 19:22] LABS: HEPATITIS C VIRUS ABY INDEX 0.25 INDEX (<0.8)
[2024-01-19 19:23] LABS: HEPATITIS B CORE ANTIBODY IGM NEGATIVE (NEGATIVE)
== END ==
LOC: M LAB 17:35
PROVIDERS: ATTEND Nurse Practitioner Family
DX: Z00.00 Encounter for general adult medical examination without abnormal findings (principal); E78.00 Pure hypercholesterolemia, unspecified; F41.0 Panic disorder [episodic paroxysmal anxiety]; Z20.2 Contact with and (suspected) exposure to infections with a predominantly sexual mode of transmission

== ENCOUNTER 2024-03-11 14:37 | Emergency (ER) | payer OTHER ==
[~2024-03-11] VITALS: Ht 172.7 cm; Wt 82.6 kg
[~2024-03-11 14:37] MED LIST changes: -TADA5TAB PO; +TADA5TAB94 PO
[2024-03-11 14:39] VITALS: BP 145/88; TEMP 97.6; O2SAT 100
== END 2024-03-11 15:08 | disposition left against medical advice (07) ==
LOC: M ED 14:37
DX: Z53.21 Procedure and treatment not carried out due to patient leaving prior to being seen by health care provider (principal)

== ENCOUNTER → 2024-10-08 | Outpatient (CLI) | payer OTHER ==
[~2024-10-08] MED LIST changes: -AMBI10TA PO; -BUPR-597 PO; +BUPR-766 PO; +TADA5TAB2 PO; -TADA5TAB94 PO; +ZOLP-533 PO
== END ==
LOC: M PLALAB 12:21
PROVIDERS: ATTEND Urology
DX: Z12.5 Encounter for screening for malignant neoplasm of prostate (principal)
CPT/HCPCS: 36415; G0103